=== PATIENT | female | born 1955 | race Caucasian/White ===

== ENCOUNTER 2017-10-15 08:54 | Observation (INO) | payer OTHER ==
[2017-10-15 09:40] LABS: #Eosinphils 0.1 thou/uL (0.0-0.7); #Lymphocytes 2.6 thou/uL (1.20-3.40); #Monocytes 0.6 thou/uL (0.11-0.59); #Neutrophils 3.1 thou/uL (1.40-6.50); %Basophils 0.5 % (0.0-1.0); %Eosinophils 1.1 % (0.0-10.0); %Lymphocytes 40.7 % (21.0-51.0); %Monocytes 8.8 % (0.0-10.0); %Neutrophils 48.8 % (42.0-75.0); Hemoglobin 14.1 g/dL (12.0-16.0); Mean Corpuscular HGB CONC 34.4 g/dL (32.0-36.0); Mean Corpuscular Hemoglobin 32.8 pg (27.0-31.0); Mean Corpuscular Volume 95.4 fl (81.0-99.0); Mean Platelet Volume 8.1 fL (7.4-10.4); Platelet Count 246 thou/uL (130-400); RBC Distribution Width 11.8 % (11.5-14.5); Red Blood Cell (RBC) Count 4.29 mill/uL (4.20-5.40); White Blood Cell (WBC) Count 6.4 thou/uL (4.8-10.8)
--- NOTE | 2017-10-15 10:01 | RAD ---
AP VIEW CHEST: Date: 10/15/17 INDICATION: Irregular heart rate and diaphoresis with chest pain. COMPARISON: None. FINDINGS: Lungs are clear. Cardiomediastinal silhouette is normal. No acute osseous abnormality is evident. IMPRESSION: No acute cardiopulmonary abnormality. POS: [facility]
[2017-10-15 10:03] LABS: ALT (SGPT) 11 U/L (8-55); AST (SGOT) 13 U/L (5-34); Albumin 4.5 g/dL (3.4-4.8); Alkaline Phosphatase 74 U/L (40-150); Anion Gap 9 mmol/L (10-20); BUN (Urea Nitrogen) 13 mg/dL (9.8-20.1); Bilirubin, Total 0.4 mg/dL (0.2-1.2); CK (CPK) 41 U/L (29-168); Calc. Creatinine Clearance 0 mL/min (70-130); Calcium 9.8 mg/dL (7.8-10.44); Carbon Dioxide 28 mmol/L (23-31); Chloride 102 mmol/L (98-107); Estimated GFR-MDRD Greater than 90; Globulin 2.9 g/dL (2.4-3.5); Glucose 91 mg/dL (80-115); Lipase 13 U/L (8-78); Potassium 3.9 mmol/L (3.5-5.1); Protein, Total 7.4 g/dL (6.0-8.3); Sodium 135 mmol/L (136-145)
[2017-10-15 10:13] LABS: CKMB 0.9 ng/mL (0-6.6); Troponin I Less than 0.010 ng/mL (< 0.028)
[2017-10-15] MEDS ORDERED: hydrALAZINE 20 MG/ML VIAL SLOW IVP PRN (11:20)
[2017-10-15] MEDS ORDERED: Zolpidem Tartrate 5 MG TAB PO PRN (11:20)
[2017-10-15] MEDS ORDERED: Ondansetron HCl/PF 4 MG/2 ML Vial IVP PRN (11:20)
[2017-10-15] MEDS ORDERED: Eucerin (Mineral Oil/Petrolatum,White) 30 gm Jar TOP PRN (11:20)
[2017-10-15] MEDS ORDERED: Nitroglycerin 0.4 MG TAB (25 Tab Bottle) SL PRN (11:20)
[2017-10-15] MEDS ORDERED: Artificial Tears 18 DROP/0.9 ML EA EYE PRN (11:20)
[2017-10-15] MEDS ORDERED: Loperamide HCl 2 MG CAP PO PRN (11:20)
[2017-10-15] MEDS ORDERED: HYDROcodone/Acetaminophen 5/325 mg Tablet PO PRN (11:20)
[2017-10-15] MEDS ORDERED: Milk Of Magnesia 30 ML UDCUP PO PRN (11:20)
[2017-10-15] MEDS ORDERED: Loratadine 10 MG TAB PO PRN (11:20)
[2017-10-15] MEDS ORDERED: Diabetic Tussin 200 MG/10 ML UDCUP PO PRN (11:20)
[2017-10-15] MEDS ORDERED: Chloraseptic Spray 180 ml Bottle PO PRN (11:20)
[2017-10-15] MEDS ORDERED: Sodium Chloride 0.65% Nasal 44 ML BOT EA NARE PRN (11:20)
[2017-10-15] MEDS ORDERED: Ondansetron ODT 4 MG TAB PO PRN (11:20)
[2017-10-15] MEDS ORDERED: Senokot 8.6 MG TAB PO PRN (11:20)
[2017-10-15] MEDS ORDERED: Mag-Al 1200 mg/1200 mg/30 ML UDCUP PO PRN (11:20)
--- NOTE | 2017-10-15 11:23 | PDOC.PN ---
- Subjective Encounter Start Date: 10/15/17 Encounter Start Time: 11:22 -: old records requested/rev see H & P - Objective Resuscitation Status: Resuscitation Status FULL:Full Resuscitation MAR Reviewed: Yes Result Diagrams: 10/15/17 09:30 10/15/17 09:30 Radiology Reviewed by me: Yes EKG Reviewed by me: Yes Phys Exam - Physical Examination Constitutional: NAD HEENT: PERRLA, moist MMs, sclera anicteric Neck: no JVD, supple Respiratory: no wheezing, no rales, no rhonchi Cardiovascular: RRR, no significant murmur, no rub Gastrointestinal: soft, non-tender, no distention, positive bowel sounds Musculoskeletal: no edema, pulses present Neurological: non-focal, normal sensation, moves all 4 limbs Lymphatic: no nodes Psychiatric: normal affect, A&O x 3 Skin: no rash, normal turgor Dx/Plan (1) Chest pain Code(s): R07.9 - CHEST PAIN, UNSPECIFIED Status: Acute (2) Palpitation Code(s): R00.2 - PALPITATIONS Status: Acute (3) Hypothyroidism Code(s): E03.9 - HYPOTHYROIDISM, UNSPECIFIED Status: Chronic (4) Osteoarthritis Code(s): M19.90 - UNSPECIFIED OSTEOARTHRITIS, UNSPECIFIED SITE Status: Chronic - Plan cont current plan of care, plan discussed w/ family * stress test * follow my H & P. Review of Systems - Review of Systems ENT: negative: Ear Pain, Ear Discharge, Nose Pain, Nose Discharge, Nose Congestion, Mouth Pain, Mouth Swelling, Throat Pain, Throat Swelling, Other Respiratory: negative: Cough, Dry, Shortness of Breath, Hemoptysis, SOB with Excertion, Pleuritic Pain, Sputum, Wheezing Cardiovascular: negative: chest pain, palpitations, orthopnea, paroxysmal nocturnal dyspnea, edema, light headedness, other Gastrointestinal: negative: Nausea, Vomiting, Abdominal Pain, Diarrhea, Constipation, Melena, Hematochezia, Other Genitourinary: negative: Dysuria, Frequency, Incontinence, Hematuria, Retention , Other Musculoskeletal: negative: Neck Pain, Shoulder Pain, Arm Pain, Back Pain, Hand Pain, Leg Pain, Foot Pain, Other Skin: negative: Rash, Lesions, Dylon, Bruising, Other - Medications/Allergies Allergies/Adverse Reactions: Allergies Allergy/AdvReac Type Severity Reaction Status Date / Time No Known Allergies Allergy Unverified 10/15/17 11:22 Medications: Current Medications Acetaminophen (Tylenol) 650 mg PO Q4H PRN PRN Reason: Headache/Fever or Pain Hydrocodone Bitart/Acetaminophen ([place] 5/325) 1 tab PO Q4H PRN PRN Reason: Moderate Pain (4-6) Al Hydroxide/Mg Hydroxide (Maalox) 30 ml PO Q6H PRN PRN Reason: Heartburn or Indigestion Artificial Tears (Tears Naturale) 0 drop EA EYE PRN PRN PRN Reason: Dry Eyes Aspirin (Aspirin) 325 mg PO DAILY TENZIN Famotidine (Pepcid) 20 mg PO BID TEZNIN Guaifenesin (Robitussin Sf) 200 mg PO Q4H PRN PRN Reason: Cough Hydralazine HCl (Apresoline) 10 mg SLOW IVP Q4H PRN PRN Reason: Systolic BP > 180 Loperamide HCl (Imodium) 2 mg PO PRN PRN PRN Reason: Diarrhea/Loose Stools Loratadine (Claritin) 10 mg PO DAILYPRN PRN PRN Reason: Sinus Symptoms Magnesium Hydroxide (Milk Of Magnesium) 30 ml PO DAILYPRN PRN PRN Reason: Constipation Mineral Oil/White Petrolatum (Eucerin Cream) 0 gm TOP BIDPRN PRN PRN Reason: Dry Skin Nitroglycerin (Nitrostat) 0.4 mg SL Q5MIN PRN PRN Reason: Chest Pain Ondansetron HCl (Zofran Odt) 4 mg PO Q6H PRN PRN Reason: Nausea/Vomiting Ondansetron HCl (Zofran) 4 mg IVP Q6H PRN PRN Reason: Nausea/Vomiting Phenol (Chloraseptic Anderson 180 Ml Bot) 0 ml PO PRN PRN PRN Reason: Sore Throat Senna (Senokot) 2 tab PO HSPRN PRN PRN Reason: Constipation Sodium Chloride (Tripp Nasal Anderson 0.65%) 0 ml EA NARE QIDPRN PRN PRN Reason: Nasal Congestion Zolpidem Tartrate (Ambien) 5 mg PO HSPRN PRN PRN Reason: Insomnia
[2017-10-15 11:42] VITALS: BMI 24.3
[2017-10-15 13:18] LABS: Troponin I Less than 0.010 ng/mL (< 0.028)
[2017-10-15 16:22] LABS: Troponin I Less than 0.010 ng/mL (< 0.028)
[2017-10-15] MEDS: Famotidine 20 MG TAB PO SCH (21:08)
--- NOTE | 2017-10-15 22:31 | HP ---
PRIMARY CARE PHYSICIAN: [facility] call admission. REASON FOR ADMISSION: Chest pain and palpitations. HISTORY OF PRESENT ILLNESS: A 61-year-old female who has underlying history of hypothyroidism, who c aki to emergency room for evaluation of chest pain and palpitations. Patient reports that for last o ne week, she was experiencing palpitations. She was feeling skipped beat. She was feeling irregular heart rate. Patient was feeling intermittently chest discomfort. Her chest discomfort was predomin antly in substernal region. One time, it was also radiated to neck. Otherwise, she denies any radia tion to arm. She denies any associated diaphoresis, but she felt a couple of times dizziness. She d enies any associated nausea, vomiting. She denies any syncope. She denies any orthopnea, PND, or le g swelling. There is no specific precipitating factor. Patient drinks only regular amount of coffee . She is taking thyroid medications. She does not have any hyperthyroid symptoms. As this patient was experiencing similar symptoms for about a week that is why she saw Dr. Carranza' s office and at that time, everything was normal and she was advised to get outpatient stress test. Patient did not have any outpatient stress test yet, but this morning when she was getting ready, at that time, patient again experienced palpitation and chest pain and that is why patient decided to go to emergency room for evaluation. In the emergency room, case monitor was showing PVCs and PACs, otherwise rhythm was normal. Lori vargas subsequently had blood test, which showed normal cardiac enzymes. Patient was admitted to telem etry floor for rule out acute coronary syndrome. Patient denies any UTI symptoms. She denies any fever or chills. She denies any constipation, diarr hea, melena, or hematochezia. She denies any abdominal pain. She denies any headache, focal motor s ymptoms, or sensory symptoms. REVIEW OF SYSTEMS: Please see my HPI for pertinent positive and negative. All other review of syste ms reviewed and negative except as mentioned in the HPI: Constitutional: Weight loss or gain, abil ity to conduct usual activities. Skin: Rash, itching. Eyes: Double vision, pain. ENT/Mouth: Nos e bleeding, neck stiffness, pain, tenderness. Cardiovascular: Palpitations, dyspnea on exertion, or thopnea. Respiratory: Shortness of breath, wheezing, cough, hemoptysis, fever, or night sweats. Ga strointestinal: Poor appetite, abdominal pain, heartburn, nausea, vomiting, constipation, or diarrhe a. Genitourinary: Urgency, frequency, dysuria, nocturia. Musculoskeletal: Pain, swelling. Neurol ogic/Psychiatric: Anxiety, depression. Allergy/Immunologic: Skin rash, bleeding tendency. PAST MEDICAL HISTORY: Hypothyroidism, osteoarthritis. PAST SURGICAL HISTORY: Breast augmentation, hysterectomy. PAST PSYCHIATRIC HISTORY: Reviewed and negative. 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 She dr inks alcohol socially. She denies any smoking. She denies any other illicit drug abuse. She is mar ried. FAMILY HISTORY: Positive for coronary artery disease to her parents. No family history of sudden ca rdiac . Atrial fibrillation was also diagnosed to her mother. EMERGENCY ROOM COURSE: Reviewed. ALLERGIES: No known drug allergies. CURRENT HOME MEDICATIONS: Levothyroxine 88 mcg p.o. daily, Zanaflex 4 mg p.o. daily, estropipate 1.5 mg p.o. daily. PHYSICAL EXAMINATION: VITAL SIGNS: On arrival blood pressure 151/86, pulse 68, respiratory rate 10, temperature 97.9, satu ration 98% on room air, weight 64.4 kilograms. GENERAL: Patient is currently alert, oriented, no acute distress. HEAD: Normocephalic, atraumatic. EYES: Pupils round, reactive to light. Extraocular muscle intact. ENT: Oropharynx within normal limits. Moist mucous membranes. No oral lesion, no pharyngeal erythe ma, no exudate. NECK: Supple, no JVD, no thyromegaly, no carotid bruit, no jugular venous distention. LUNGS: Clear to auscultation without any rhonchi or rales. CARDIAC: S1, S2 regular without any murmur. ABDOMEN: Soft, bowel sounds present, nontender, nondistended. No organomegaly, no mass, no suprapub ic tenderness. BACK: Unremarkable, no CVA tenderness. EXTREMITIES: Upper extremity passive movement of all joints are normal. Lower extremities, no edema . Good peripheral pulsation. SKIN: No skin rash. HEMATOLOGICAL SYSTEM: No lymphadenopathy. PSYCHIATRIC: Normal affect. NEUROLOGIC: Nonfocal examination. Patient moves all 4 limbs. Plantar bilateral flexor. PSYCHIATRIC: Normal affect. LABORATORY DATA: Significant labs EKG showing normal sinus rhythm, premature atrial complexes. Ches t x-ray based on my review, no acute cardiopulmonary process. CBC: WBC 6.4, hemoglobin 14.1, platel et 246. BMP: Sodium 135, potassium 3.9, chloride 102, carbon dioxide 28, anion gap 9, BUN 13, creat inine 0.64, glucose 91, calcium 9.8. LFT: AST 13, ALT 11, alkaline phosphatase 74, albumin 4.5. Ca rdiac enzymes negative x3. Chest x-ray based on my review, no acute cardiopulmonary process. ASSESSMENT AND PLAN: 1. Chest pain and palpitation. Patient's chest pain and palpitation description is atypical, most l ikely related with premature ventricular contraction and premature atrial contraction. Patient will be observed on telemetry floor. She will need ischemic workup and that is why we will perform exerci se Cardiolite stress test tomorrow morning. 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 Patient's cardiac examination is normal. Upon discharge, we will consider prescribing beta-catalina therapy. We will check lipid profile for risk stratification. We will also check TSH. We will monitor on telemetry floor for any kind of arrhythm ias. 2. Hypothyroidism. Continue Synthroid 88 mcg p.o. daily. Check TSH tomorrow. 3. Osteoarthritis and chronic low back pain. Continue patient's home medications, Zanaflex and estr opipate as per home dosage. 4. Deep venous thrombosis prophylaxis not needed because we are expecting discharge in 24 hours. 5. Gastrointestinal prophylaxis, Pepcid 20 mg p.o. b.i.d. Code status: Patient is FULL CODE. Patient's is surrogate decision maker. Disposition plan based on clinical course. Based on stress test result likely within 24 hours. Plan of care discussed with the patient and her at bedside.
[2017-10-16] MEDS: Acetaminophen 325 MG TAB PO PRN ×2 (04:52→10:41)
[2017-10-16] MEDS ORDERED: Levothyroxine Sodium 88 MCG TAB PO SCH (06:00)
[2017-10-16 06:05] LABS: Cardiac Risk 2.9 (Less than 4.5)
[2017-10-16] MEDS ORDERED: Metoprolol Tartrate 5 MG/5 ML VIAL ONE (08:00)
[2017-10-16] MEDS ORDERED: Aspirin 325 MG TAB PO SCH (09:00)
[2017-10-16] MEDS: Famotidine 20 MG TAB PO SCH (10:09)
[2017-10-16] MEDS ORDERED: Metoprolol Tartrate 5 MG/5 ML VIAL IVP SCH (10:30)
[2017-10-16] MEDS ORDERED: Diltiazem 125 MG in Sodium Chloride 0.9% 100 ML IVPB SCH (10:30)
--- NOTE | 2017-10-16 11:59 | NM ---
CARDIAC SPECT: CLINICAL HISTORY: 61-year-old female with chest pain. TECHNIQUE: A myocardial perfusion scan was performed using the single isotope two day protocol with 33 mCi techn etium-99m sestamibi injected intravenously for both stress and rest images. Exercise stress was monit ored and interpreted by Dr. Aguilar. FINDINGS: Homogeneous tracer distribution is seen in the myocardial segments on stress and rest images without fixed or reversible defects. GATED SPECT LVEF: 57%. WALL MOTION EXAM: Normal. IMPRESSION: Normal myocardial perfusion scan. POS: [facility]
--- NOTE | 2017-10-16 12:11 | CON ---
DATE OF CONSULTATION: 10/16/2017 HISTORY OF PRESENT ILLNESS: Patient is a pleasant 61-year-old woman who presents for evaluation of palpitations and chest discomfort. The patient was seen several years ago with these symptoms. She underwent a Cardiolite stress test and wore a Holter monitor. Her evaluation was apparently unremarkable. She states she worked until recently for several years. The patient for the past few months was noted having palpitations. She states once or twice a month it will occur. She noticed her heart rate is very rapid. The patient also notes having substernal chest discomfort. She states this occurs when she feels her heart is racing. The patient today underwent a stress test and developed rapid palpitations and chest discomfort. PAST MEDICAL HISTORY: Thyroid disorder. PAST SURGICAL HISTORY: Appendectomy and breast surgery. MEDICATIONS ON ADMISSION: Synthroid 88 mcg daily, Zanaflex 4 mg daily, estropipate 1.5 mg daily. ALLERGIES: She has no known drug allergies. SOCIAL HISTORY: She is a nonsmoker. REVIEW OF SYSTEMS: Ten-point system otherwise unremarkable. No history of bruising or bleeding, bright red blood per rectum. PHYSICAL EXAMINATION: GENERAL APPEARANCE: This is a well-developed woman in no acute distress. VITAL SIGNS: Blood pressure was 134/76, heart rate 120 and irregular. NECK: Showed no jugular venous distention. LUNGS: Clear to auscultation. HEART: Irregular rate and rhythm, normal S1, S2, no murmurs. ABDOMEN: Nondistended. EXTREMITIES: Show no edema. SKIN: Warm and dry. NEUROLOGIC: Nonfocal. VASCULAR: Radial pulses are 2+. LABORATORY DATA AND IMAGING DATA: Sodium 135, potassium 3.9, chloride 102, bicarbonate 28, BUN 13, creatinine 0.64, glucose is 91. Her white blood cell count 6.4, hemoglobin 14.1, hematocrit 40.9, and platelets are 246. EKG revealed her to have atrial fibrillation with rapid ventricular response with rate of approximately 180 and up to 200, possible SVT . IMPRESSION: 1. New onset of atrial fibrillation. 2. Probable supraventricular tachycardia. 3. Thyroid disorder. This patient presents with irregular heart rhythms and chest discomfort. From a cardiac standpoint, she is a CHADS-VASc score of only 1. The patient was started on IV Cardizem. She received IV Lopressor during her stress test. There was significant ST depression with these rapid heart rates. We will await the results of her Cardiolite stress test. We will follow this patient with you through her hospitalization. KATY
[2017-10-16] MEDS ORDERED: Ketorolac Tromethamine 30 MG/ML VIAL IVP SCH (13:30)
[2017-10-16] MEDS ORDERED: Metoclopramide HCl 10 MG/2 ML VIAL IVP SCH (13:30)
[2017-10-16 15:28] VITALS: BP 123/77; TEMP 97.9
--- NOTE | 2017-10-16 20:06 | CON ---
DATE OF CONSULTATION: 10/16/2017 This is Aida Morrow, Nurse Practitioner, dictating Electrophysiology consult for Jin Bonilla M.D . REFERRING PHYSICIAN: Kenny Aguilar M.D. PRIMARY FAX MACHINE OPERATOR: Jey Carranza M.D. REASON FOR CONSULTATION: Atrial arrhythmias versus SVT. HISTORY OF PRESENT ILLNESS: Ms. Rojo is a very pleasant 61-year-old woman, who initially presented to the emergency room for further evaluation of palpitations and some mild chest tightness. She has never had chest tightness before; however, she has progressively been experiencing palpitations sinc e the beginning of this year. Her episodes will occur approximately every month to every other month and have some rapid heart rate that last for just a few minutes before spontaneously terminating. H owever, with this particular episode, she did develop some substernal chest discomfort, at which pogibran t decided to go to the emergency room. In the past, she has undergone evaluation for her palpitations and had a Cardiolite stress test and a lso wear monitor, which was unremarkable. She reports that with exercise exertion, she notices palpi tations more and occasionally heart racing and has for many years. Today, she underwent a stress gilmer t and while in phase 2 in the stress test, her heart rate spiked to between 170 and 200 beats per min xin. She was previously on a Cardizem drip. This has since resolved and currently she feels well. She has not had any heart racing, palpitations, chest pain or pressure, syncope or near syncope. She denies any stroke or stroke-like symptoms and denies any swelling of the extremities or progressive shortness of breath or dyspnea on exertion. REVIEW OF SYSTEMS: A 12-point review of systems was conducted and is negative except that listed abo ve in the HPI. PAST MEDICAL HISTORY: Positive for hypothyroidism, palpitations, and appendectomy. HOME MEDICATIONS: Synthroid 88 mcg daily, Zanaflex 4 mg daily, and estropipate 1.5 mg daily. ALLERGIES: No known drug allergies. SOCIAL HISTORY: . Negative for tobacco use. Negative for alcohol and illicit drug use. FAMILY HISTORY: Negative for sudden cardiac or early onset coronary artery disease, negative f or arrhythmias. PHYSICAL EXAMINATION: VITAL SIGNS: Temperature 97.9, pulse 78, blood pressure 131/70, respirations 12, oxygen saturation 9 6% on room air, blood pressure 123/77. GENERAL: This is a well-appearing, well-groomed and well-nourished female, in no acute distress. Sh e is alert and oriented. Her speech is clear and her affect is appropriate. HEENT: She is normocephalic, atraumatic. Her Sclerae are anicteric. TMs are intact. Her oral muco sa is moist and pink with adequate dentition. NECK: Supple without jugular venous distention. Thyroid is nonpalpable. There is no lymphadenopath y. CARDIOVASCULAR: Heart rate is currently regular with normal S1, S2 and no murmurs appreciated. EXTREMITIES: Warm and dry to touch without clubbing, cyanosis or edema. LUNGS: Clear to auscultation bilaterally without wheezes, crackles or rhonchi. ABDOMEN: Soft, nontender without palpable masses and hepatojugular reflex is negative. There are po sitive bowel sounds throughout. NEUROLOGIC: Grossly intact and exam is nonfocal. DATABASE: Recent hematology: WBC 6.4, hemoglobin 14.1, hematocrit 40.9, platelet count 246. Chemis try: Sodium 135, potassium 3.9, chloride 102, carbon dioxide 28, BUN is 13, creatinine 0.64. Serial troponins were negative. TSH is 1.48. Review of 12-lead EKGs and rhythm strips, all were personally reviewed including the tracings recorde d during her stress test. The patient is currently in normal sinus rhythm with rate controlled in th e 60-70 beat per minute range. While during her stress test, the patient did go into what appears to be atrial flutter. Cannot truly rule out SVT with a 12-lead EKG alone, rates from 170-200 beats per minute. IMPRESSION: 1. New onset of chest tightness with associated palpitations. 2. Newly found atrial fibrillation/atrial flutter with rapid ventricular response. Cannot rule out supraventricular tachycardia. 3. CHADS-VASc score of 1 for female gender. PLAN: At this time, would just recommend fairly conservative medical management for Ms. Rojo with beta-catalina therapy and will be initiating metoprolol. In the setting of paroxysmal atrial arrhythm ias, we will start her on aspirin 81 mg daily given her low CHADS-VASc score and thus low risk for [facility]. I recommend continuing to monitor as an outpatient for 1-2 weeks for recurrence of arrhythmias . Most of her episodes seem to be exercise-induced and titrating beta-blockers as tolerated and may provide adequate control of these extra beats and prevent atrial fibrillation and atrial flutter epis odes. No plan for invasive therapies at this time. She is still pending the results from her stress test. Also, I recommend continued monitoring of her TSH, which is currently within range. Thank you for allowing us to participate in the care of this patient.
[2017-10-16] MEDS ORDERED: Metoprolol Tartrate 25 MG TAB PO SCH (21:00)
[2017-10-16] MEDS ORDERED: tiZANidine HCl 4 MG TAB PO SCH (21:00)
--- NOTE | 2017-10-17 03:10 | DIS ---
DATE OF ADMISSION: 10/15/2017 DATE OF DISCHARGE: 10/16/2017 DISCHARGE DIAGNOSES: 1. New onset of atrial fibrillation. 2. Palpitations. 3. Hypothyroidism. HOSPITAL COURSE: The patient is a very pleasant 61-year-old female who initially presented to the [facility] with palpitations and chest pain. The patient underwent troponins checked which were negative x3. Patient's TSH was normal. The patient underwent a stress test; however, during the stress test , she went into atrial fibrillation, RVR. At that time, the patient was given 5 mg of IV Lopressor a nd was started on a Cardizem drip. The patient was seen by soap chipper and by Cardiology at that time. The patient was discharged home with 25 mg of metoprolol twice a day, and aspirin given h er CHADS-VASc score of 1. Patient will follow up with Cardiology in 1-2 weeks. Her EF was 57% and s he had no wall motion abnormalities in the stress test that was noted. DISCHARGE MEDICATIONS: As following aspirin 81 mg daily, metoprolol 25 mg p.o. b.i.d., levothyroxine 88 mcg p.o. daily, and tizanidine 4 mg p.o. at bedtime. PHYSICAL EXAMINATION: VITAL SIGNS: Temperature ____, 61, 16, 134/76. GENERAL: She is awake, alert, oriented x3, does not appear in distress. HEART: S1, S2 present. No murmurs, rubs, or gallops. ABDOMEN: Soft, nontender. Bowel sounds are present x2. LUNGS: Clear to auscultation, rhonchi, or wheezes noted. EXTREMITIES: No edema. DISCHARGE INSTRUCTIONS: Patient will be discharged home. Follow up with PCP and Cardiology.
== END 2017-10-16 17:03 | disposition home or self-care (01) ==
LOC: ERS 08:54 → 2SW 11:11
PROVIDERS: ADMIT Internal Medicine; ATTEND Internal Medicine
DX: R07.89 Other chest pain (principal); R00.2 Palpitations; I48.0 Paroxysmal atrial fibrillation; E03.9 Hypothyroidism, unspecified; M19.90 Unspecified osteoarthritis, unspecified site; G89.29 Other chronic pain; M54.5 Low back pain; Z79.899 Other long term (current) drug therapy; Z90.49 Acquired absence of other specified parts of digestive tract; Z82.49 Family history of ischemic heart disease and other diseases of the circulatory system
CPT/HCPCS: 36415; 71045; 78452; 80053; 80061; 82553; 83690; 84443; 84484; 85025; 93005; 93017; 94760; 96374; 96375; 96376; A9500; G0378; J1885; J2405; J2765; J7050

== ENCOUNTER 2018-05-20 14:17 | Observation (INO) | payer OTHER ==
[~2018-05-20 14:17] MED LIST: Iopamidol 370 76% 100 ML VIAL ONE
[2018-05-20 14:55] LABS: #Eosinphils 0.1 thou/uL (0.0-0.7); #Monocytes 0.6 thou/uL (0.11-0.59); #Neutrophils 3.5 thou/uL (1.40-6.50); %Basophils 0.3 % (0.0-1.0); %Eosinophils 2.2 % (0.0-10.0); %Lymphocytes 32.6 % (21.0-51.0); %Monocytes 9.1 % (0.0-10.0); %Neutrophils 55.8 % (42.0-75.0); Hemoglobin 12.8 g/dL (12.0-16.0); Mean Corpuscular HGB CONC 34.6 g/dL (32.0-36.0); Mean Corpuscular Hemoglobin 33.9 pg (27.0-31.0); Mean Corpuscular Volume 97.8 fL (78.0-98.0); Mean Platelet Volume 8.4 fL (7.4-10.4); Platelet Count 241 thou/uL (130-400); Red Blood Cell (RBC) Count 3.78 mill/uL (4.20-5.40); White Blood Cell (WBC) Count 6.2 thou/uL (4.8-10.8)
[2018-05-20 15:04] LABS: INR-International Normal Ratio 0.9
[2018-05-20 15:18] LABS: ALT (SGPT) 11 U/L (8-55); AST (SGOT) 16 U/L (5-34); Albumin 4.1 g/dL (3.4-4.8); Alkaline Phosphatase 78 U/L (40-150); Anion Gap 10 mmol/L (10-20); BUN (Urea Nitrogen) 13 mg/dL (9.8-20.1); Bilirubin, Total 0.3 mg/dL (0.2-1.2); CK (CPK) 63 U/L (29-168); CKMB 0.9 ng/mL (0-6.6); Calc. Creatinine Clearance 0 mL/min (70-130); Calcium 9.3 mg/dL (7.8-10.44); Carbon Dioxide 24 mmol/L (23-31); Chloride 103 mmol/L (98-107); Estimated GFR-MDRD 86; Glucose 106 mg/dL (80-115); Protein, Total 7.1 g/dL (6.0-8.3); Sodium 133 mmol/L (136-145); Troponin I Less than 0.010 ng/mL (< 0.028)
--- NOTE | 2018-05-20 15:37 | CT ---
CT HEAD NONCONTRAST: Date: 05/20/18 INDICATINO: Stroke alert, new onset left arm numbness. FINDINGS: There is no intracranial hemorrhage, mass effect, or midline shift. Mild white matter hypoattenuation indicates chronic ischemic disease. Ventricular system is appropriate in volume. IMPRESSION: 1. No acute intracranial hemorrhage or mass effect. 2. Mild chronic ischemic disease. Telephone call findings placed to Tyrone Dozier, ER physician, at 1511 hours on 05/20/18. CODE CR. POS: [facility]
--- NOTE | 2018-05-20 17:16 | CT ---
CT ANGIOGRAM HEAD WITH CONTRAST CT ANGIOGRAM NECK WITH CONTRAST: Date: 05/20/18 HISTORY: 62-year-old female with acute stroke. Sudden onset dysarthria, facial droop, and left upper extremity numbness. Dr. Rowland gave this acute stroke protocol report by telephone to Dr. Dozier at 1535 hours on 05/20/18. TECHNIQUE: IV injection of 100 mL [id number]. Arterial bolus chasing technique scan performed from level of pulmonic trunk to vertex of head. Coronal and sagittal 3D MIP reconstructions. NASCET criteria used. FINDINGS: Minimal calcified plaque at origin of right internal carotid artery at carotid bulb. No calcified channing que in contralateral left carotid bulb. Minimal atherosclerotic calcification at bilateral carotid si phons. No evidence of significant stenosis in brachiocephalic, bilateral subclavian, bilateral common caroti d, bilateral internal carotid, and bilateral vertebral, arteries, in the neck. No evidence of high gr torrie focal short segment acquired stenosis involving intracranial vertebral, bilateral PICA, right AIC A, bilateral superior cerebellar, bilateral posterior cerebral, bilateral carotid siphons, bilateral middle cerebral, or bilateral anterior cerebral, arteries, or their proximal branches. No occlusion i dentified. No evidence of aneurysm. IMPRESSION: 1) Minimal atherosclerosis at proximal right internal carotid artery. 2) Otherwise Negative. POS: [facility]
[2018-05-20] MEDS ORDERED: tiZANidine HCl 4 MG TAB PO PRN (17:46)
[2018-05-20] MEDS ORDERED: Meclizine HCl 25 MG TAB PO PRN (17:46)
[2018-05-20] MEDS ORDERED: Acetaminophen 325 MG TAB PO PRN (17:48)
[2018-05-20 17:49] VITALS: BMI 24.4
[2018-05-20] MEDS: Metoprolol Tartrate 25 MG TAB PO SCH (21:31)
[2018-05-20] MEDS: Flecainide 50 MG TAB PO SCH (21:31)
[2018-05-20] MEDS: Famotidine 20 MG TAB PO SCH (21:31)
--- NOTE | 2018-05-21 01:43 | HP ---
PRIMARY CARE PHYSICIAN: Dr. Lott. CHIEF COMPLAINT: Transient left-sided facial droop, aphasia, and left-sided arm weakness. HISTORY OF PRESENT ILLNESS: Ms. Rojo is a 62-year-old female who reports to the ER after she had an episode of left-sided facial droop, left-sided arm weakness, numbness, and some difficulty forming words. 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 Reports that the symptoms lasted between 5 and 10 minutes and then resolved on their own. The patient has a family history of stroke. The patient was concerned and presented to the emergency room. The patient has a history of atrial fibrillation, was seen by Dr. Bonilla about 6 weeks ago, was started on flecainide and takes an aspirin 81 mg a day. The patient was admitted to the stroke unit for further management. PAST MEDICAL HISTORY: Include hypothyroidism, atrial fibrillation, and arthritis. PAST SURGICAL HISTORY: Breast augmentation, breast biopsy, and partial hysterectomy. PSYCHIATRIC HISTORY: Denies any psych history. SOCIAL HISTORY: The patient drinks every day, less than 5 drinks per day. Denies any drug use. Denies any smoking history. ALLERGIES: NONE. CURRENT MEDICATIONS: Include; 1. Flecainide 50 mg p.o. b.i.d. 2. Metoprolol 50 mg p.o. b.i.d. 3. Aspirin 81 mg once a day. 4. Levothyroxine 88 mcg p.o. daily. 5. Estropipate 1.5 mg p.o. daily. 6. Zanaflex 4 mg p.o. q.6h as needed. 7. 5-FU cream 5% topical to face. REVIEW OF SYSTEMS: CONSTITUTIONAL: The patient denies chills, fatigue, fever, or lethargy. Denies any current weakness. EYES: Denies any eye pain, photophobia, or vision changes. ENT: Denies any drooling. Denies any current dysphagia. Denies any sinus pain. CARDIOVASCULAR: Denies any chest pain. Does report intermittent palpitations since September. RESPIRATORY: Denies cough, shortness of breath, or stridor. Denies wheezing. GASTROINTESTINAL: Denies any abdominal pain, appetite changes, diarrhea, nausea, or vomiting. GENITOURINARY: Female. Denies dysuria. Denies increased frequency. MUSCULOSKELETAL: Denies any back pain. Denies any neck pain. SKIN: Denies any skin changes. Denies rash. NEUROLOGIC: Denies confusion. Does report intermittent dizziness. Reports a small headache after the motor and sensory changes today, reports speech changes earlier today, reports left arm numbness, reports a left-sided facial droop which are currently resolved. LABORATORY DATA AND IMAGING STUDIES: The patient had a head CT, which showed chronic ischemic white matter changes, otherwise no acute process. EKG in the ER showed a normal sinus rhythm. Beats per minutes are 62, normal conduction. ST-segments are normal. T-waves are normal. [place] is normal. CK-MB was 0.9. Troponin-I undetectable. CK 63. Sodium was 133, potassium 4.0, chloride 103, carbon dioxide 24, gap is 10, BUN is 13, creatinine is 0.69. GFR is 86, glucose is 106, calcium 9.3. Liver enzymes are unremarkable. PTT is 30. INR is 0.9. Prothrombin time is 12. White blood cell count 6.2, hemoglobin 12.8, hematocrit 37, platelet count is 241. ASSESSMENT AND PLAN: 1. Transient ischemic attack. We will obtain an MRI of the brain. CTA of the head and neck were ordered. We will consult Neurology. The patient was given a 325 mg of aspirin in the emergency room. 2. Hypothyroidism. We will continue home medications. 3. History of atrial fibrillation. We will continue the flecainide. 4. Deep venous thrombosis and gastrointestinal prophylaxis will be started. 5. Hospital course will be dependent on clinical findings. Job ID: [id number]
[2018-05-21] MEDS ORDERED: Levothyroxine Sodium 88 MCG TAB PO SCH (06:00)
[2018-05-21 06:23] LABS: #Eosinphils 0.2 thou/uL (0.0-0.7); #Lymphocytes 2.3 thou/uL (1.20-3.40); #Monocytes 0.7 thou/uL (0.11-0.59); #Neutrophils 2.3 thou/uL (1.40-6.50); %Basophils 0.5 % (0.0-1.0); %Eosinophils 2.8 % (0.0-10.0); %Lymphocytes 42.1 % (21.0-51.0); %Monocytes 12.2 % (0.0-10.0); %Neutrophils 42.6 % (42.0-75.0); Hemoglobin 12.3 g/dL (12.0-16.0); Mean Corpuscular HGB CONC 34.8 g/dL (32.0-36.0); Mean Corpuscular Hemoglobin 34.3 pg (27.0-31.0); Mean Corpuscular Volume 98.6 fL (78.0-98.0); Mean Platelet Volume 8.6 fL (7.4-10.4); Platelet Count 230 thou/uL (130-400); RBC Distribution Width 12.2 % (11.5-14.5); Red Blood Cell (RBC) Count 3.59 mill/uL (4.20-5.40); White Blood Cell (WBC) Count 5.5 thou/uL (4.8-10.8)
[2018-05-21 06:35] LABS: ALT (SGPT) 10 U/L (8-55); AST (SGOT) 13 U/L (5-34); Albumin 3.7 g/dL (3.4-4.8); Alkaline Phosphatase 63 U/L (40-150); Anion Gap 9 mmol/L (10-20); BUN (Urea Nitrogen) 11 mg/dL (9.8-20.1); Bilirubin, Total 0.4 mg/dL (0.2-1.2); Calc. Creatinine Clearance 87 mL/min (70-130); Calcium 8.8 mg/dL (7.8-10.44); Carbon Dioxide 24 mmol/L (23-31); Cardiac Risk 3.2 (Less than 4.5); Chloride 106 mmol/L (98-107); Cholesterol 194 mg/dl (< 200 Desired); Estimated GFR-MDRD 89; Globulin 2.6 g/dL (2.4-3.5); Glucose 94 mg/dL (80-115); HDL Cholesterol 61 mg/dL (>60 Neg Risk); LDL Cholesterol, Calculated 115 mg/dL; Potassium 3.9 mmol/L (3.5-5.1); Protein, Total 6.3 g/dL (6.0-8.3); Sodium 135 mmol/L (136-145); Triglycerides 88 mg/dL (Less than 150)
[2018-05-21 06:54] LABS: Free T4 (Free Thyroxine) 1.11 ng/dL (0.70-1.48); Thyroid Stimulating Hormone 1.368 uIU/mL (0.35-4.94)
[2018-05-21] MEDS: Famotidine 20 MG TAB PO SCH (08:50)
[2018-05-21] MEDS: Metoprolol Tartrate 25 MG TAB PO SCH (08:50)
[2018-05-21] MEDS: Flecainide 50 MG TAB PO SCH (08:50)
[2018-05-21] MEDS ORDERED: Ergocalciferol 1.25 MG(50,000 UNITS) CAP PO SCH (09:00)
[2018-05-21] MEDS ORDERED: Enoxaparin Sodium 30 MG/0.3 ML SYRINGE SC SCH (09:00)
[2018-05-21] MEDS ORDERED: Aspirin 325 MG TAB PO SCH (09:00)
--- NOTE | 2018-05-21 13:34 | MRI ---
NONCONTRAST ENHANCED MRI BRAIN: HISTORY: TIAs. Left arm numbness. TECHNIQUE: Multiplanar, multisequence, noncontrast enhanced MRI brain obtained. FINDINGS: Images demonstrate some deep white matter ischemic changes. No evidence of acute intracranial masses , hemorrhages, or strokes seen. No evidence of areas of diffusion restriction seen. Noted is an area of hyperintensity seen on the T2 weighted sequences, at the anterior aspect of the s uperficial lobe of the right parotid gland. The lesion measures approximately 9 x 13 mm. Further wo rkup using contrast enhanced CT soft tissue neck, to further evaluate the right parotid gland, may be of use. IMPRESSION: 1. No evidence of acute intracranial strokes or masses. 2. Right parotid area of signal abnormality. Differential diagnosis includes cyst versus cystic mas s. Correlate with contrast enhanced CT of the soft tissue neck. POS: YUE
[2018-05-21 16:02] VITALS: BP 124/73; TEMP 98.1
--- NOTE | 2018-05-22 00:21 | CON ---
DATE OF CONSULTATION: 05/21/2018 CONSULTING PHYSICIAN: Hospitalist Service. IMPRESSION: Transient ischemic attack versus complex migraine. PLAN: 1. Add Plavix 75 mg per day. 2. Continue aspirin. 3. Office followup. HISTORY OF PRESENT ILLNESS: Ms. Rojo is a 62-year-old woman with past history of migraine headache. She has recently had a cardiac workup, and during the stress test, had a brief conversion to atrial fibrillation. She had a followup monitoring, which failed to reveal any evidence of recurrent atrial fibrillation. She has been on aspirin and medications for rate control. She has had some migraines with aura prior to this admission. She was working at her desk when she lost the central vision in her right eye, she developed a headache afterward. She has used Maxalt in the past. On this occasion, she was working, and she suddenly felt that the left arm was numb and a bit weak, she started slurring her speech. Co-workers report that she had some left facial droop. Her symptoms lasted less than a minute and then resolved. She got a headache about 15 minute later. She came into the hospital for evaluation. She had a CT of the brain and CTA, which were both clear. Her MRI of the brain was unremarkable other than a right parotid gland mass. Her lab work was all in normal range with a cardiac risk of 3.2. PAST MEDICAL HISTORY: As noted above. ALLERGIES: NONE REPORTED. SOCIAL HISTORY: No tobacco use. FAMILY HISTORY: Noncontributory. REVIEW OF SYSTEMS: Otherwise negative for any other transient neurologic events. PHYSICAL EXAMINATION: VITAL SIGNS: Have been stable. She is afebrile. HEENT: Pupils are equal and reactive. Conjunctivae are clear. Oropharynx is clear. NECK: Supple. EXTREMITIES: No cyanosis. NEUROLOGIC: She is alert and appropriate. Her speech is fluent and clear. There are no focal deficits present. SUMMARY: Given the somewhat inconclusive connection between the transient neurologic deficit and development of a headache, I would suggest adding Plavix. I will follow up with her, and we will probably discontinue this treatment in 6 months if she remains asymptomatic. Job ID: [id number]
--- NOTE | 2018-05-24 10:06 | DIS ---
DATE OF ADMISSION: 05/20/2018 DATE OF DISCHARGE: 05/21/2018 PRIMARY CARE PHYSICIAN: Dr. Lott. DIRECT MARKETING SPECIALIST: Dr. Valle. PROCEDURES: 1. The patient had a CTA of the neck and brain with contrast, findings; minimal calcified plaque at origin of right internal carotid artery, the carotid bulb, no calcified plaque in contralateral left carotid bulb. Minimal atherosclerotic calcification of bilateral carotid siphons. No evidence of significant stenosis , bilateral subclavian, bilateral common carotid, bilateral internal carotid or bilateral vertebrae, arteries or neck. No evidence of high-grade focal short segment acquired stenosis involving intracranial vertebral, bilateral PICA, right AICA, bilateral supracerebellar, bilateral posterior cerebral, bilateral carotid siphons, bilateral middle cerebral or bilateral anterior cerebral arteries or their proximal branches. No occlusion is identified. No evidence of aneurysm. 2. The patient had a brain CT that showed impression; no acute intracranial hemorrhage or mass effect, mild chronic ischemic disease. 3. The patient also had an MRI of the brain, which showed no evidence of acute intracranial stroke or mass. Right parotid area of signal abnormality. Differential diagnosis includes cyst versus cystic mass, correlate with contrast-enhanced CT of soft tissue neck. 4. The patient also had an echocardiogram with ejection fraction of 55% to 60% with some mild atrial regurgitation, mild aortic regurgitation, and mild tricuspid regurgitation. DISCHARGE DIAGNOSES: 1. Transient ischemic attack. 2. Atrial fibrillation, transient, and treated with flecainide. 3. Hypertension, well controlled. REVIEW OF SYSTEMS: The patient was examined on day of discharge. Denied any headache. Denied any chest pain. Denied any focal or sensory deficits. Denied any motor deficits. All other systems were reviewed and are negative. PHYSICAL EXAMINATION: VITAL SIGNS: Temperature is 97.6, pulse is 59, respiratory rate 18, pulse ox is 97% on room air, and blood pressure 141/74. CONSTITUTIONAL: The patient denies chills, fatigue, fever, or lethargy. Denies any current weakness. HEAD: Normocephalic and atraumatic. ENT: Mucous membranes are moist. Mouth exam is normal. NECK: Full range of motion. Trachea is midline. CHEST: Breath sounds are clear, in no respiratory distress. HEART: S1 and S2. No extra sounds are heard. ABDOMEN: Soft and nontender. Bowel sounds are heard. EXTREMITIES: Upper extremities; normal inspection, normal range of motion. Pulses are equal bilaterally. Lower extremities; normal inspection, normal range of motion, normal strength. No pedal edema is noted. Pulses are equal bilaterally. NEUROLOGIC: Cranial nerves 2 through 10 are intact. No focal or sensory deficits. SKIN: Warm and dry and normal in color. HOSPITAL COURSE: The patient was admitted on 05/20 through the emergency room after she reported for evaluation after having an episode of left-sided facial droop, left-sided arm weakness, numbness, and some difficulty forming some words, she reports this lasted about 10 minutes, she was at work, does have a history of atrial fibrillation, which is controlled with flecainide. Her initial head CT was negative. Based on presentation and risk factors, she was admitted to stroke observation for further workup. Her CTA of the head and neck was negative for any acute process. Her MRI of the brain showed some chronic white matter changes, but otherwise no acute findings. She was seen by Dr. Valle for neurology, who recommended adding Plavix and aspirin and asked to follow her in the office. The patient's vital signs remained stable. The patient had no further symptoms. The patient was eager to return home. Case discussed with Dr. Huff, who agreed with the plan. The patient was agreeable to starting the Plavix. MEDICATIONS: Current medications will be restarted: 1. Flecainide 50 mg p.o. b.i.d. 2. Metoprolol 50 mg p.o. b.i.d. 3. We will increase her aspirin from 81 to 325 mg once a day. 4. Levothyroxine 88 mcg p.o. daily. 5. Estropipate 1.5 mg p.o. daily. 6. Zanaflex 4 mg p.o. every 6 hours as needed. 7. 5-FU cream 5% topical to face as instructed. 8. We will add Plavix 75 mg p.o. daily. 9. We will add Lipitor 40 mg p.o. daily. ALLERGIES: THE PATIENT HAS NO KNOWN ALLERGIES. DISPOSITION: The patient was discharged to home. CONDITION: The patient's condition is stable. REFERRAL: The patient should follow up with Dr. Lott and also Dr. Valle on his next available appointment. Job ID: [id number]
--- NOTE | 2018-05-25 14:07 | EKG ---
Test Reason : Blood Pressure : / mmHG Vent. Rate : 062 BPM Atrial Rate : 062 BPM P-R Int : 182 ms QRS Dur : 094 ms QT Int : 422 ms P-R-T Axes : 071 060 066 degrees QTc Int : 428 ms Normal sinus rhythm Normal ECG Confirmed by WILDER INIGUEZ, MYA Williamson ([id number]), fashion editor LANDY FORTE ([id number]) on 05/25/2018 2:07:21 PM Referred By: Confirmed By:YMA HDZ MD
== END 2018-05-21 17:33 | disposition home or self-care (01) ==
LOC: ERS 14:17 → 2SE 15:32
PROVIDERS: ADMIT Internal Medicine; ATTEND Internal Medicine
DX: G45.9 Transient cerebral ischemic attack, unspecified (principal); E03.9 Hypothyroidism, unspecified; I48.91 Unspecified atrial fibrillation; M19.90 Unspecified osteoarthritis, unspecified site; G43.909 Migraine, unspecified, not intractable, without status migrainosus; I10 Essential (primary) hypertension; Z79.82 Long term (current) use of aspirin; Z79.899 Other long term (current) drug therapy
CPT/HCPCS: 36415; 70450; 70496; 70498; 70551; 80053; 80061; 82550; 82553; 84439; 84443; 84481; 84484; 85025; 85610; 85730; 93005; 93306; 96372; G0378; J1650

== ENCOUNTER 2018-06-03 09:07 | Observation (INO) | payer OTHER ==
[2018-06-03 09:48] LABS: #Basophils 0.1 thou/uL (0.0-0.2); #Eosinphils 0.1 thou/uL (0.0-0.7); #Lymphocytes 2.2 thou/uL (1.20-3.40); #Monocytes 0.5 thou/uL (0.11-0.59); #Neutrophils 3.2 thou/uL (1.40-6.50); %Eosinophils 1.9 % (0.0-10.0); %Lymphocytes 36.1 % (21.0-51.0); %Monocytes 8.9 % (0.0-10.0); %Neutrophils 52.1 % (42.0-75.0); Hemoglobin 12.5 g/dL (12.0-16.0); Mean Corpuscular HGB CONC 33.6 g/dL (32.0-36.0); Mean Corpuscular Hemoglobin 32.7 pg (27.0-31.0); Mean Corpuscular Volume 97.3 fL (78.0-98.0); Mean Platelet Volume 8.4 fL (7.4-10.4); Platelet Count 218 thou/uL (130-400); RBC Distribution Width 11.7 % (11.5-14.5); Red Blood Cell (RBC) Count 3.82 mill/uL (4.20-5.40); White Blood Cell (WBC) Count 6.1 thou/uL (4.8-10.8)
[2018-06-03 09:51] LABS: INR-International Normal Ratio 1.1; PTT 34.7 SEC (22.9-36.1); Prothrombin Time 14.5 SEC (12.0-14.7)
--- NOTE | 2018-06-03 10:03 | RAD ---
PORTABLE CHEST 1 VIEW: DATE: 06/03/2018. TIME: 9:30 a.m. HISTORY: Chest pain, hypotension, bradycardia. FINDINGS: Comparison is made with the exam of 10/15/2017. The heart size is normal. The aorta is tortuous. The lungs are expanded without focal areas of cons olidation, pneumothoraces, or pleural effusions. IMPRESSION: No radiographic evidence of acute cardiopulmonary process. POS: OFF
[2018-06-03 10:10] LABS: ALT (SGPT) 10 U/L (8-55); AST (SGOT) 12 U/L (5-34); Albumin 3.5 g/dL (3.4-4.8); Alkaline Phosphatase 69 U/L (40-150); Anion Gap 11 mmol/L (10-20); BUN (Urea Nitrogen) 12 mg/dL (9.8-20.1); Bilirubin, Total 0.4 mg/dL (0.2-1.2); CK (CPK) 26 U/L (29-168); Calc. Creatinine Clearance 0 mL/min (70-130); Calcium 8.3 mg/dL (7.8-10.44); Carbon Dioxide 21 mmol/L (23-31); Chloride 105 mmol/L (98-107); Estimated GFR-MDRD 82; Globulin 2.7 g/dL (2.4-3.5); Glucose 94 mg/dL (80-115); Potassium 3.7 mmol/L (3.5-5.1); Protein, Total 6.2 g/dL (6.0-8.3); Sodium 133 mmol/L (136-145)
[2018-06-03 11:32] LABS: Bilirubin Negative (Negative); Blood, Urine Negative (Negative); Clarity CLOUDY (Clear); Glucose, Urine (Dipstick) Negative (Negative); Leukocyte Trace (Negative); Nitrite Negative (Negative); Protein, Urine (Dipstick) Negative (Neg-Trace); Urobilinogen 0.2 mg/dL (0.2-1.0)
[2018-06-03 11:36] LABS: Bacteria/HPF None Seen HPF (None Seen); Hyaline Casts/LPF 0-3 HYALINE CAST LPF (0-3 Hyaline); Pathc Cast-AUWi Flag 0.14 (0-2.49)
[2018-06-03 12:00] LABS: RBC/HPF 0-3 HPF (0-3)
[2018-06-03 13:16] LABS: Troponin I Less than 0.010 ng/mL (< 0.028)
[2018-06-03] MEDS ORDERED: Morphine 4 MG/ML VIAL ONE (13:34)
[2018-06-03] MEDS ORDERED: Acetaminophen 325 MG TAB ONE (13:42)
--- NOTE | 2018-06-03 14:13 | CT ---
CT BRAIN WITHOUT CONTRAST: Date: 06/03/18 HISTORY: Headache. FINDINGS: Comparison made with exam of 05/20/18. Changes of mild chronic small vessel ischemic disease are again seen. The ventricular size is stable and the basilar cisterns are patent. No evidence of infarct, hemorrhage, midline shift, or abnormal e xtra-axial fluid collections are seen. The ventricular size is appropriate and the basilar cisterns a re patent. The bony calvarium is intact. The visualized paranasal sinuses and mastoid air cells are w ell aerated. IMPRESSION: No CT evidence of acute intracranial process. POS: OFF
[2018-06-03 16:05] LABS: Troponin I Less than 0.010 ng/mL (< 0.028)
[2018-06-03] MEDS ORDERED: Ondansetron PF 4 MG/2 ML Vial IVP PRN (16:12)
[2018-06-03] MEDS ORDERED: Acetaminophen 325 MG TAB PO PRN (16:12)
[2018-06-03] MEDS ORDERED: Ondansetron ODT 4 MG TAB SL PRN (16:12)
[2018-06-03] MEDS ORDERED: Sodium Chloride 0.9% 1,000 ML IV SCH (16:15)
[2018-06-03 16:18] VITALS: BMI 25.4
[2018-06-03] MEDS ORDERED: Metoclopramide HCl 10 MG/2 ML VIAL IVP SCH (16:45)
[2018-06-03] MEDS ORDERED: diphenhydrAMINE 50 MG/ML VIAL IVP SCH (16:45)
[2018-06-03] MEDS ORDERED: Ketorolac Tromethamine 30 MG/ML VIAL IVP SCH (17:00)
[2018-06-03] MEDS ORDERED: tiZANidine HCl 4 MG TAB PO PRN (17:22)
[2018-06-03] MEDS ORDERED: Meclizine HCl 25 MG TAB PO PRN (17:22)
--- NOTE | 2018-06-03 18:10 | HP ---
PRIMARY CARE PHYSICIAN: Dr. Lott. CHIEF COMPLAINT: Presyncope. HISTORY OF PRESENT ILLNESS: Ms. Rojo is a 62-year-old female who presented to the emergency room with evaluation of hypotension, bradycardia, had a presyncopal episode this morning. The patient reports that she was feeling unwell like she had some sort of viral illness over the last few days, nothing specific. She was tired, weak. Reports that she has had a headache on and off for the last several days. When she got up this morning, she sat up at the edge of the bed. Reports that she got very clammy, diaphoretic. She felt dizzy, felt like she was going to pass out, so she laid back down. Denies any loss of consciousness. Reports that she has been off work for the last 2 weeks after her last visit in admission to this hospital. She was discharged on 05/24/2018 for TIA symptoms. At that time, had Neurology consult and was placed on Plavix and aspirin. She reports that she had seen her sealing machine operator, Dr. Carranza and her primary care Dr. Jean, and they changed up her medication that she is no longer on hormone and Dr. Carranza took her off Plavix and aspirin and added Eliquis to her daily regimen. She reports that she has been taking that. Reports that she was feeling well and had plan to go back to work today until she had the presyncopal episode this morning. Reports that her took her blood pressure this morning and this was on the low side 80/40 with slower heart rate in the 50s. The patient does have a history of atrial fibrillation which was controlled with metoprolol and flecainide. When she got to the emergency room this morning, her blood pressure was 157/96 with a pulse of 72. She denies any visual changes, chest pain, shortness of breath, any focal sensory or motor deficits. Based on recent history, the patient will be admitted to the observation unit for further management. The patient did have a CT of the brain while in the emergency room, which showed no CT evidence of acute intracranial process. She had an echocardiogram here on last visit on 05/21, which showed an EF of 55% to 60%. Brain MRI did not show any acute process. PAST MEDICAL HISTORY: Includes hypothyroidism, atrial fibrillation, arthritis, TIA. PAST SURGICAL HISTORY: Breast augmentation, breast biopsy, partial hysterectomy. PSYCH HISTORY: None. SOCIAL HISTORY: The patient reports that she drinks alcohol every day, less than 5 drinks per day. Denies any smoking or drug use. ALLERGIES: NONE. CURRENT MEDICATIONS: 1. Flecainide 50 mg p.o. b.i.d. 2. Metoprolol 25 mg p.o. b.i.d. 3. Levothyroxine 88 mcg p.o. daily. 4. Zanaflex 4 mg p.o. q.6 hours as needed. 5. Eliquis 5 mg p.o. b.i.d. 6. Vitamin D 5000 units p.o. daily. 7. Meclizine 25 mg p.o. q.4 hours p.r.n. 8. Lipitor 40 mg p.o. daily. REVIEW OF SYSTEMS: The patient denies any fever, chills, cough, shortness of breath, chest pain, abdomen pain, nausea, vomiting, diarrhea. Does report lingering headache. Reports that it is posterior. Reports that it is intermittent comes and goes. All other systems reviewed and are negative unless mentioned in the HPI. PHYSICAL EXAMINATION: CONSTITUTIONAL: In no apparent distress. HEAD: Atraumatic and normocephalic. EYES: Eyelids are normal to inspection. Pupils are equally round and reactive to light. Extraocular muscles are intact. ENT: Mouth exam is normal. Mucous membranes are moist. NECK: Normal. No cervical adenopathy. No tenderness. Trachea is midline. RESPIRATORY/CHEST: No respiratory distress. Breath sounds are clear. CARDIOVASCULAR: Heart sounds normal. S1 and S2. ABDOMEN: Female. Abdomen is nontender. Bowel sounds are heard. BACK: Normal inspection. No tenderness. EXTREMITIES: Upper extremities; inspection normal. Radial pulse, normal bilaterally. Normal range of motion. Lower extremity, normal inspection. Normal strength. Pedal pulses equal bilaterally. No edema is noted. NEUROLOGIC: The patient is oriented to person, place, and time. Speech is normal. No focal, motor, or sensory deficits. SKIN: Warm, dry, and normal in color. IMAGING STUDIES: EKG interpretation in the ER shows a normal sinus rhythm, beats per minute 70. Conduction normal, ST segments. T-waves are normal. [place] is normal. PERTINENT LABORATORY DATA: White blood cell count 6.1, hemoglobin 12.5, hematocrit 37.2. INR 1.1, PT 14.5, APTT 34.7. Sodium is 133, potassium 3.7, chloride 105, carbon dioxide 21, gap is 11, BUN is 12, creatinine is 0.72. Estimated GFR is 82. Glucose 94, calcium 8.3. CK is 26. Troponins x3 are undetectable. C-reactive protein is 0.51. Liver enzymes are unremarkable. Urine is positive for some leukocyte esterase, positive for white blood cells and squamous cells. IMPRESSION AND PLAN: 1. Presyncope. The patient had echocardiogram and MRI of the brain, carotid Doppler studies on her last admission 2 weeks ago. We will ask Dr. Carranza, sealing machine operator to come and evaluate. The patient relate that Dr. Carranza discussed a loop recorder in his office last week. We will look forward to their recommendations. 2. History of atrial fibrillation. We will continue the flecainide and metoprolol. 3. History of transient ischemic attack. We will continue the Eliquis. 4. Hypothyroidism. We will continue the home medications. 5. The patient will be started on deep venous thrombosis and gastrointestinal prophylaxis. 6. Clinical course will be dependent on findings. Job ID: [id number]
[2018-06-03] MEDS: Apixaban 5 MG TAB PO SCH (20:46)
[2018-06-03] MEDS: Flecainide 50 MG TAB PO SCH (20:46)
[2018-06-03] MEDS: Famotidine 20 MG TAB PO SCH (20:46)
[2018-06-03] MEDS: Metoprolol Tartrate 25 MG TAB PO SCH (20:47)
[2018-06-04] MEDS ORDERED: Levothyroxine Sodium 88 MCG TAB PO SCH (06:00)
[2018-06-04 06:23] LABS: #Eosinphils 0.1 thou/uL (0.0-0.7); #Lymphocytes 2.8 thou/uL (1.20-3.40); #Monocytes 0.6 thou/uL (0.11-0.59); #Neutrophils 2.7 thou/uL (1.40-6.50); %Basophils 0.6 % (0.0-1.0); %Lymphocytes 44.4 % (21.0-51.0); %Monocytes 9.3 % (0.0-10.0); %Neutrophils 43.7 % (42.0-75.0); Hemoglobin 11.5 g/dL (12.0-16.0); Mean Corpuscular HGB CONC 34.1 g/dL (32.0-36.0); Mean Corpuscular Hemoglobin 33.8 pg (27.0-31.0); Mean Corpuscular Volume 99.1 fL (78.0-98.0); Mean Platelet Volume 9.1 fL (7.4-10.4); Platelet Count 214 thou/uL (130-400); RBC Distribution Width 11.9 % (11.5-14.5); Red Blood Cell (RBC) Count 3.41 mill/uL (4.20-5.40); White Blood Cell (WBC) Count 6.2 thou/uL (4.8-10.8)
[2018-06-04 06:46] LABS: ALT (SGPT) 8 U/L (8-55); AST (SGOT) 12 U/L (5-34); Albumin 3.3 g/dL (3.4-4.8); Alkaline Phosphatase 59 U/L (40-150); Anion Gap 10 mmol/L (10-20); BUN (Urea Nitrogen) 8 mg/dL (9.8-20.1); Bilirubin, Total 0.3 mg/dL (0.2-1.2); Calc. Creatinine Clearance 98 mL/min (70-130); Calcium 8.3 mg/dL (7.8-10.44); Carbon Dioxide 24 mmol/L (23-31); Chloride 107 mmol/L (98-107); Estimated GFR-MDRD Greater than 90; Globulin 2.5 g/dL (2.4-3.5); Glucose 93 mg/dL (80-115); Potassium 3.7 mmol/L (3.5-5.1); Protein, Total 5.8 g/dL (6.0-8.3); Sodium 137 mmol/L (136-145)
[2018-06-04 08:19] VITALS: BP 150/70; TEMP 98.3
[2018-06-04] MEDS ORDERED: Ergocalciferol 1.25 MG(50,000 UNITS) CAP PO SCH (09:00)
[2018-06-04] MEDS ORDERED: Atorvastatin Calcium 40 MG TAB PO SCH (09:00)
[2018-06-04] MEDS: Apixaban 5 MG TAB PO SCH (09:34)
[2018-06-04] MEDS: Famotidine 20 MG TAB PO SCH (09:35)
[2018-06-04] MEDS: Flecainide 50 MG TAB PO SCH (09:36)
[2018-06-04] MEDS: Metoprolol Tartrate 25 MG TAB PO SCH (09:36)
--- NOTE | 2018-06-04 12:28 | EKG ---
Test Reason : Blood Pressure : / mmHG Vent. Rate : 070 BPM Atrial Rate : 070 BPM P-R Int : 136 ms QRS Dur : 090 ms QT Int : 414 ms P-R-T Axes : 002 060 062 degrees QTc Int : 447 ms Normal sinus rhythm Normal ECG Confirmed by NOREEN ROMAN MD ([id number]), supervising film or videotape editor LAURE SHEPPARD ([id number]) on 06/04/2018 12:28:04 PM Referred By: Confirmed By:NOREEN ROMAN MD
--- NOTE | 2018-06-05 10:39 | DIS ---
DATE OF ADMISSION: 06/03/2018 DATE OF DISCHARGE: 06/04/2018 PRIMARY CARE PHYSICIAN: Dr. Lott. CONSULTANTS: Dr. Carranza, Cardiology. PROCEDURES: 1. The patient had a CT of the brain which showed no CT evidence of acute intracranial process. 2. The patient also had a chest x-ray which showed no acute cardiopulmonary process. DISCHARGE DIAGNOSES: 1. Presyncope, unknown etiology. 2. History of atrial fibrillation. 3. History of transient ischemic attack. 4. Hypothyroidism. HOSPITAL COURSE: Ms. Rojo is a very pleasant 62-year-old female, who is admitted through the emergency room on 06/03/2018 for evaluation of a presyncopal episode at home. The patient reports that she felt unwell over the last two days. Reports that she also had a headache which she reports as migraines from time to time, but this felt a little different. When she is out of the edge of the bed, she felt very clammy and diaphoretic, felt a little dizzy. She laid back down. When her took her blood pressure, it was a little hypotensive with low pulse. EMS checked it when they first arrived. It was also heart rate in the 50s, blood pressure had come up to 90/50. She was taken to the emergency room and evaluated. Vital signs when she arrived in the emergency room; blood pressure 157/96, pulse was 72, pulse does dip down in the 50s. Blood pressure lowest reading in the emergency room was 146/86. While she has been admitted, we did orthostatic blood pressure readings, which were unremarkable. Blood pressure the lowest reading here was 135/70. Her vital signs have remained stable. Dr. Carranza saw the patient both on the day of admission and today prior to discharge, recommended continuing on Eliquis and re-visiting him in the office in the next several weeks. We also, while she was admitted, gave her some Benadryl, Reglan, a little bit of Toradol, and some fluids for her headache. She reports that her headache resolved after the medication regimen and reports today her headache is resolved and she feels much better. Reports that she does have some Maxalt at home, but did not take any over the weekend because she thought her headache was atypical. The patient was feeling well enough to go home and so she was discharged. REVIEW OF SYSTEMS: The patient was examined prior to discharge. Denies any complaints. Headache is resolved. Denies any chest pain, palpitations, diaphoresis, abdominal pain, nausea, vomiting, or diarrhea. All other systems are reviewed and are negative unless mentioned in the hospital course. PHYSICAL EXAMINATION: VITAL SIGNS: Temperature 97.9, pulse 67, respirations 16, pulse ox is 97% on room air, and blood pressure 138/76. CONSTITUTIONAL: The patient is in no acute distress. She is alert and oriented. HEENT: Head is atraumatic and normocephalic. Eyes; eyelids are normal to inspection. Pupils are equal, round, and reactive to light. Extraocular muscles are intact. ENT; mucous membranes are moist. Mouth exam appears normal. NECK: No cervical adenopathy. No tenderness. Trachea is midline. RESPIRATORY: Chest; no respiratory distress. Breath sounds are clear. No wheezing. CARDIOVASCULAR: Normal heart rate and rhythm. Heart sounds are normal. ABDOMEN: Female, nontender on palpation. Bowel sounds are heard. BACK: Normal inspection. No tenderness. EXTREMITIES: Upper extremities; normal inspection. Normal strength. Radial pulses equal bilaterally. Lower extremity; inspection normal. Strength is normal. Pulses are equal bilaterally. No edema is noted. NEURO: The patient is alert and oriented to person, place, and time. Speech is normal. No focal motor or sensory deficits. SKIN: Warm, dry, and normal in color. PSYCH: The patient has a normal affect. MEDICATIONS: The patient will be continued on her home medication which include; 1. Eliquis 5 mg p.o. b.i.d. 2. Vitamin D one tab p.o. daily. 3. Flecainide 50 mg p.o. b.i.d. 4. Levothyroxine 88 mcg p.o. every a.m. 5. Meclizine 25 mg p.o. as needed. 6. Zofran 4 mg p.o. q.6 hours as needed. 7. Zanaflex 4 mg p.o. at bedtime as needed. 8. Lipitor 40 mg p.o. daily. ALLERGIES: NO KNOWN DRUG ALLERGIES. CONDITION: The patient's condition is stable. DISPOSITION: The patient will be discharged home. REFERRALS: The patient should make an appointment with Dr. Lott within the next week and go back to Dr. Carranza within the next 2 weeks. Job ID: [id number]
--- NOTE | 2018-06-06 17:12 | CON ---
DATE OF CONSULTATION: 06/03/2018 REASON FOR CONSULTATION: Bradycardia. HISTORY OF PRESENT ILLNESS: Ms. Rojo is a 62-year-old, whom I have seen and evaluated in the past. She recently presented with a TIA and was subsequently readmitted for weakness, fatigue, hypotension, bradycardia. During my visit, her blood pressure and heart rate had been stable. Her states her heart rate and blood pressure had been very fluctuant. She has had a chronic headache over the last several days. No chest pain, pressure, or other associated symptoms. During my visit on 06/03/2018, she did appear weak, but no specific symptoms. PAST MEDICAL HISTORY: Paroxysmal atrial fibrillation, TIA, hypothyroidism, breast augmentation, breast biopsy, hysterectomy. MEDICATIONS: Include, 1. Metoprolol. 2. Flecainide. 3. Levothyroxine. 4. Zanaflex. 5. Eliquis. 6. Vitamin D. 7. Meclizine. 8. Lipitor. REVIEW OF SYSTEMS: Ten-point review of systems is reviewed and as above, is otherwise negative. PHYSICAL EXAMINATION: GENERAL: Patient is a pleasant female, who is in no acute distress. The patient appears their stated age. VITAL SIGNS: Blood pressure 110/70, pulse 80, respiratory rate 20. NEUROLOGIC: The patient is alert and oriented x3 with no focal neurologic deficits. HEENT: Sclerae without icterus. Mouth has moist mucous membranes with normal pallor. NECK: No JVD. Carotid upstroke brisk. No bruits bilaterally. LUNGS: Clear to auscultation with unlabored respirations. BACK: No scoliosis or kyphosis. CARDIAC: Regular rate and rhythm with normal S1 and S2. No S3 or S4 noted. No significant rubs, murmurs, thrills, or gallops noted throughout the precordium. PMI is not displaced. There is no parasternal heave. ABDOMEN: Soft, nontender, nondistended. No peritoneal signs present. No hepatosplenomegaly. No abnormal striae. EXTREMITIES: 2+ femoral and 2+ dorsalis pedis pulses. No cyanosis, clubbing, or edema. SKIN: No gross abnormalities. IMPRESSION: 1. Hypotension. 2. Bradycardia. RECOMMENDATIONS: At this point, Ms. Rojo's blood pressure and heart rate appears stable. Both the above occurred while at home. She continues to complain of headache, which is not felt to be cardiac related. At this point, I would recommend continued observation on the telemetry monitoring. We will continue with Eliquis. I discussed risks and benefits of Eliquis with the patient as well as her . They are somewhat reluctant, but agreeable due to risk of bleeding. We discussed the CHADS-VASc versus HAS-BLED risk stating her bleeding risk is lower on anticoagulation therapy versus risk of stroke off anticoagulation. Job ID: [id number] KATY
--- NOTE | 2018-06-07 00:37 | PRG ---
DATE OF SERVICE: 06/04/2018 SUBJECTIVE: Ms. Rojo is doing well. She feels much better today. No further headaches. No significant dysrhythmias overnight. PHYSICAL EXAMINATION: GENERAL: Patient is a pleasant 62-year-old female, who is in no acute distress. The patient appears their stated age. VITAL SIGNS: Blood pressure 120/70, pulse 86, respirations 20. NEUROLOGIC: The patient is alert and oriented x3 with no focal neurologic deficits. HEENT: Sclerae without icterus. Mouth has moist mucous membranes with normal pallor. NECK: No JVD. Carotid upstroke brisk. No bruits bilaterally. LUNGS: Clear to auscultation with unlabored respirations. BACK: No scoliosis or kyphosis. CARDIAC: Regular rate and rhythm with normal S1 and S2. No S3 or S4 noted. No significant rubs, murmurs, thrills, or gallops noted throughout the precordium. PMI is not displaced. There is no parasternal heave. ABDOMEN: Soft, nontender, nondistended. No peritoneal signs present. No hepatosplenomegaly. No abnormal striae. EXTREMITIES: 2+ femoral and 2+ dorsalis pedis pulses. No cyanosis, clubbing, or edema. SKIN: No gross abnormalities. IMPRESSION: 1. Headache. 2. Bradycardia. 3. Hypotension. RECOMMENDATIONS: From a CV standpoint, her symptoms have resolved. There was no evidence noted while in the emergency room or while on telemetry monitoring. We will continue close observation. Given her recent history of TIA and previous history of atrial fibrillation, we will continue to recommend anticoagulation therapy. I did discuss placement of implantable loop recorder with the patient. She will think about her options but at this point, we will continue treatment with anticoagulation therapy. PLAN: Follow up in the next 1 to 2 weeks. Job ID: [id number]
== END 2018-06-04 11:33 | disposition home or self-care (01) ==
LOC: ERS 09:07 → ERHOLD 12:39 → 2SW 15:49
PROVIDERS: ADMIT Family Medicine; ATTEND Family Medicine
DX: R55 Syncope and collapse (principal); I48.0 Paroxysmal atrial fibrillation; E03.9 Hypothyroidism, unspecified; M19.90 Unspecified osteoarthritis, unspecified site; Z86.73 Personal history of transient ischemic attack (TIA), and cerebral infarction without residual deficits; Z90.711 Acquired absence of uterus with remaining cervical stump; Z79.01 Long term (current) use of anticoagulants; Z79.899 Other long term (current) drug therapy; Z98.890 Other specified postprocedural states
CPT/HCPCS: 36415; 70450; 71045; 80053; 81003; 81015; 82550; 84484; 85025; 85610; 85652; 85730; 86140; 87086; 93005; 96360; 96361; 96374; 96375; G0378; J1200; J1885; J2270; J2765

== ENCOUNTER 2018-10-18 09:22 | Outpatient (CLI) | payer OTHER ==
--- NOTE | 2018-10-18 16:14 | MMO ---
Bilateral MAMMO Bilat Screen [facility]. CLINICAL HISTORY: Patient is 62 years old and is seen for screening. The patient has no family history of breast cancer. The patient has no personal history of cancer. The patient has a history of Excisional Biopsy in May, - replace implants from silicone to saline. and left Excisional Biopsy in February, - benign biopsy. VIEWS: The views performed were: bilateral craniocaudal; bilateral mediolateral oblique; and bilateral Implant displaced with tomosynthesis. FILMS COMPARED: The present examination has been compared to prior imaging studies performed at [facility] on 09/27/2006, 07/20/2011, 07/31/2014, 11/10/2015 and 04/27/2017. MAMMOGRAM FINDINGS: The breasts are heterogeneously dense, which could obscure a lesion on mammography. Benign calcifications are noted bilaterally. Bilateral implants are stable. There are no suspicious masses, suspicious calcifications, or new areas of architectural distortion. IMPRESSION: THERE IS NO MAMMOGRAPHIC EVIDENCE OF MALIGNANCY. A ROUTINE FOLLOW-UP MAMMOGRAM IN 1 YEAR IS RECOMMENDED. THE RESULTS OF THIS EXAM WERE SENT TO THE PATIENT. ACR BI-RADS Category 2 - Benign finding MAMMOGRAPHY NOTE: 1. A negative mammogram report should not delay a biopsy if a dominant of clinically suspicious mass is present. 2. Approximately 10% to 15% of breast cancers are not detected by mammography. 3. Adenosis and dense breasts may obscure an underlying neoplasm.
== END 2018-10-18 09:23 | disposition home or self-care (01) ==
LOC: BICMAMMO 09:22
PROVIDERS: ATTEND Internal Medicine
DX: Z12.31 Encounter for screening mammogram for malignant neoplasm of breast (principal)
CPT/HCPCS: 77063; 77067

== ENCOUNTER 2019-12-23 09:16 | Outpatient (CLI) | payer OTHER ==
--- NOTE | 2019-12-23 17:27 | MRI ---
MR of the left hip without contrast INDICATION: Concern for left hip labral tear COMPARISON: Prior MR of the left hip dated January 07, 2018 TECHNIQUE: Multiplanar multisequence MR images were obtained of the left and without IV contrast. FINDINGS: Bone marrow signal intensity: Normal. No evidence for fracture. Musculature: There is a full-thickness tear involving the left gluteus minimus tendon. There is a par tial width full-thickness tear involving the anterior mid aspect of the left gluteus medius tendon. There is severe atrophy of the left gluteus minimus and moderate atrophy of the left gluteus medius t endon. The rectus femoris and left hamstring origins appear within normal limits. The left iliopsoas appears within normal limits. Left hip adductor musculature appears within normal limits. Bursa: There is a moderate left trochanteric bursitis. No iliopsoas bursitis is evident.. Joint: Small amount of fluid is seen distending the left hip joint. No definite parallel labral cyst is evident to suggest presence of a labral tear. Nerves: Visualized sciatic nerve appears within normal limits.. Intrapelvic contents: Small cystic abnormalities seen adjacent to the right common iliac vasculature measuring 2.7 and 1.5 cm are relatively stable to comparison MRI of the right hip with and without contrast dated 11/08/2011 and likely reflect small lymphoceles or slow flow vascular malformations. Sm all perineural cysts could also have a similar appearance. IMPRESSION: 1. Full-thickness tear of the left gluteus minimus tendon and a partial width, full-thickness tear of the left gluteus medius tendon with moderate left trochanteric bursitis. There is severe atrophy of the left gluteus minimus minimus musculature and moderate atrophy of the left gluteus medius muscu lature. 2. No overt evidence to suggest presence of left hip labral tear. 3. Small benign-appearing cystic abnormalities seen adjacent to the right common iliac vasculature ar e relatively stable from a comparison dated November 08, 2011.
== END 2019-12-23 09:17 | disposition home or self-care (01) ==
LOC: BICMRI 09:16
PROVIDERS: ATTEND Anesthesiology Pain Medicine
DX: S73.102A Unspecified sprain of left hip, initial encounter (principal); S76.012A Strain of muscle, fascia and tendon of left hip, initial encounter; M62.89 Other specified disorders of muscle

== ENCOUNTER 2020-01-13 15:48 | Outpatient (CLI) | payer OTHER ==
--- NOTE | 2020-01-13 16:55 | MRI ---
MRI OF THE LUMBAR SPINE WITHOUT CONTRAST: 01/13/20 HISTORY: Low back pain. COMPARISON: MRI from 2016. FINDINGS: The aortic contour is nonaneurysmal. No retroperitoneal or periaortic adenopathy. There is a T2 hyper intense focus along the right adnexa incompletely evaluated measuring at least 2.5 cm in size. The conus medullaris terminates near the inferior end plate of L1. Small cyst of the left kidney. Modic I end plate changes at L4-5. Levels are as follows: L1-2: Circumferential disc bulge. Small facet joint effusion. Moderate bilateral neural foraminal ember rowing. Minimal effacement of the ventral CSF space with the spinal canal measuring approximately 1 c m. L2-3: Mild disc desiccation. Minimal height loss. Mild facet arthrosis. Small disc bulge. Moderate ri ght and mild left neural foraminal narrowing. L3-4: Mild disc desiccation and height loss. Moderate circumferential disc bugle. Moderate to severe left and moderate right hypertrophic facet arthrosis. There is moderate left and mild right neural fo raminal narrowing. Increased posterior epidural fat. Spinal canal is narrowed to only 4 mm with some crowding of the ner ve roots. Moderate hypertrophic facet arthrosis. L4-5: Advanced degenerative space height loss with circumferential disc osteophyte complex. There is moderate to severe left and severe right neural foraminal narrowing with abutment of both exiting ner ve roots and both traversing nerve roots. Moderate hypertrophic facet arthrosis. Increased posterior epidural fat. Spinal canal is narrowed only 4 mm. L5-S1: There is grade I anterolisthesis approximately 6 mm. Moderate to severe hypertrophic facet ar throsis. Severe bilateral neural foraminal narrowing with abutment of both exiting and traversing ner ve roots. IMPRESSION: 1. Mildly progressive spondylosis lumbar spine with multilevel neural foraminal and new spinal c anal narrowing. 2. T2 hyperintense focus of the right adnexa for which nonemergent pelvic ultrasound recommended . POS: HOME
--- NOTE | 2020-01-13 16:57 | RAD ---
LUMBAR SPINE FOUR VIEW: 01/13/20 HISTORY: Acquired spondylolisthesis of the lumbosacral region. COMPARISON: Lumbar spine MRI same day. FINDINGS: There is grade I anterolisthesis of L5 over S1 with mild increased translation with flexion and exten jocy. There is moderate L4-5 degenerative disc space height loss. No acute fracture. IMPRESSION: Grade I L5-S1 anterolisthesis with mild translation with flexion and extension. POS: HOME
== END 2020-01-13 15:49 | disposition home or self-care (01) ==
LOC: BICMRI 15:48
PROVIDERS: ATTEND Anesthesiology Pain Medicine
DX: M43.17 Spondylolisthesis, lumbosacral region (principal); M47.816 Spondylosis without myelopathy or radiculopathy, lumbar region; M48.061 Spinal stenosis, lumbar region without neurogenic claudication; M48.07 Spinal stenosis, lumbosacral region; R93.89 Abnormal findings on diagnostic imaging of other specified body structures
CPT/HCPCS: 72110; 72148

== ENCOUNTER 2020-02-06 13:35 | Outpatient (CLI) | payer OTHER ==
--- NOTE | 2020-02-06 14:35 | ULT ---
EXAM: PELVIC ULTRASOUND INCLUDING TRANSABDOMINAL AND VASCULAR DUPLEX WITH COLOR AND SPECTRAL DOPPLER IMAGIN 02/06/20 HISTORY: Follow-up right adnexa from abnormal MRI, 01/13/20. FINDINGS: status post hysterectomy. Right ovary measures 3.1 x 2.2 x 1.5 cm. Left ovary measures 1.8 x 2.3 x 0. 9 cm. There is a 1.3 x 1.5 x 2.3 cm right ovarian cyst. There is a very small left ovarian follicle cyst. N o abscess or abnormal fluid collection. IMPRESSION: Small right ovarian cyst probably corresponding to the MRI finding from January 12. No other significa nt acute process. 2.3 cm right ovarian cyst. POS: OFF
== END 2020-02-06 13:36 | disposition home or self-care (01) ==
LOC: BICULT 13:35
PROVIDERS: ATTEND Anesthesiology Pain Medicine
DX: N83.201 Unspecified ovarian cyst, right side (principal)
CPT/HCPCS: 76856; 93976

== ENCOUNTER 2020-07-19 08:34 | Outpatient (CLI) | payer OTHER ==
--- NOTE | 2020-07-19 09:48 | RAD ---
CHEST 2 VIEWS: Date: 07/19/2020 HISTORY: Chronic cough. COMPARISON: Radiograph from 2018. FINDINGS: Small nodule peripheral aspects right mid lung extending between the posterior 8th and 9th rib measur ing 3-4 mm. No confluent air space consolidation, pneumothorax, or effusion. No acute osseous abnorma lity. IMPRESSION: 1. No acute intrathoracic abnormality. 2. 3-4 mm nodule projecting over the peripheral aspect right mid lung does not appear to have signif icantly grown from the 06/03/2018 exam, likely a benign granuloma. If clinically warranted, a follow- up CT of the chest in 6 months may be performed. POS: OFF
== END 2020-07-19 08:35 | disposition home or self-care (01) ==
LOC: BICRAD 08:34
PROVIDERS: ATTEND Internal Medicine
DX: R05 Cough (principal); R91.1 Solitary pulmonary nodule
CPT/HCPCS: 71046

== ENCOUNTER 2021-01-28 08:54 | Outpatient (CLI) | payer OTHER, MEDICARE ==
[2021-01-28 10:15] LABS: Hemoglobin 12.8 g/dL (12.0-15.5); Mean Corpuscular HGB CONC 34.2 g/dL (32.0-36.0); Mean Corpuscular Hemoglobin 32.8 pg (27.0-33.0); Mean Corpuscular Volume 95.9 fl (81.6-98.3); Mean Platelet Volume 11.3 fl (7.4-10.4); Platelet Count 234 10x3/uL (150-450); RBC Distribution Width 12.4 % (11.5-14.5); White Blood Cell (WBC) Count 5.7 10x3/uL (3.5-10.5)
[2021-01-28 10:33] LABS: Anion Gap 12 mmol/L (10-20); BUN (Urea Nitrogen) 13 mg/dL (9.8-20.1); Calc. Creatinine Clearance 0 mL/min (70-130); Calcium 9.5 mg/dL (7.8-10.44); Carbon Dioxide 24 mmol/L (23-31); Chloride 105 mmol/L (98-107); Glucose 101 mg/dL (80-115); Potassium 4.5 mmol/L (3.5-5.1); Sodium 136 mmol/L (136-145)
[2021-01-29 16:35] LABS: SARS-CoV-2 PCR by NAA Not Detected (NotDetected)
== END 2021-01-28 08:55 | disposition home or self-care (01) ==
LOC: LABBT 08:54
PROVIDERS: ATTEND Otolaryngology Plastic Surgery within the Head & Neck
DX: Z01.812 Encounter for preprocedural laboratory examination (principal); R22.0 Localized swelling, mass and lump, head; Z20.822 Contact with and (suspected) exposure to COVID-19
CPT/HCPCS: 80048; 85027; U0003; U0005

== ENCOUNTER 2021-02-02 | Day surgery (SDC) | payer OTHER, MEDICARE | END 2021-02-02 18:25 | disposition home or self-care (01) | PROC: 0CB80ZZ Excision of Right Parotid Gland, Open Approach (ICD-10-PCS; principal; 2021-02-02) ==

== ENCOUNTER 2021-04-08 12:33 | Outpatient (CLI) | payer OTHER, MEDICARE | END 2021-04-08 12:34 | disposition home or self-care (01) | LOC: BICCT 12:33 | PROVIDERS: ATTEND Internal Medicine | DX: R91.1 Solitary pulmonary nodule (principal) | CPT/HCPCS: 71250 ==

== ENCOUNTER 2021-06-06 17:02 | Emergency (ER) | payer OTHER, MEDICARE ==
[2021-06-06 17:38] LABS: #Eosinphils 0.1 thou/uL (0.0-0.7); #Lymphocytes 4.2 thou/uL (1.20-3.40); #Monocytes 0.9 thou/uL (0.11-0.59); #Neutrophils 5.8 thou/uL (1.40-6.50); %Basophils 0.3 % (0.0-1.0); %Eosinophils 1.2 % (0.0-10.0); %Lymphocytes 37.7 % (21.0-51.0); %Monocytes 8.3 % (0.0-10.0); %Neutrophils 52.4 % (42.0-75.0); Mean Corpuscular HGB CONC 34.1 g/dL (32.0-36.0); Mean Corpuscular Hemoglobin 33.2 pg (27.0-31.0); Mean Corpuscular Volume 97.4 fL (78.0-98.0); Mean Platelet Volume 8.1 fL (7.4-10.4); Platelet Count 280 thou/uL (130-400); RBC Distribution Width 11.8 % (11.5-14.5); Red Blood Cell (RBC) Count 4.53 mill/uL (4.20-5.40); White Blood Cell (WBC) Count 11.1 thou/uL (4.8-10.8)
[2021-06-06] MEDS ORDERED: Magnesium 2 GM/50 ML BAG (IN WATER) ONE (17:42)
[2021-06-06 17:52] LABS: INR-International Normal Ratio 0.9; PTT 36.7 sec (22.9-36.1); Prothrombin Time 12.6 sec (12.0-14.7)
[2021-06-06 18:01] LABS: ALT (SGPT) 19 U/L (8-55); AST (SGOT) 19 U/L (5-34); Albumin 4.5 g/dL (3.4-4.8); Alkaline Phosphatase 118 U/L (40-110); Anion Gap 14 mmol/L (10-20); BUN (Urea Nitrogen) 11 mg/dL (9.8-20.1); Bilirubin, Total 0.4 mg/dL (0.2-1.2); Calc. Creatinine Clearance 0 mL/min (70-130); Calcium 9.8 mg/dL (7.8-10.44); Carbon Dioxide 22 mmol/L (23-31); Chloride 97 mmol/L (98-107); Globulin 3.4 g/dL (2.4-3.5); Glucose 122 mg/dL (80-115); Potassium 3.6 mmol/L (3.5-5.1); Protein, Total 7.9 g/dL (5.8-8.1); Sodium 129 mmol/L (136-145)
[2021-06-06 18:47] LABS: Magnesium 1.7 mg/dL (1.6-2.6)
== END 2021-06-06 19:27 | disposition home or self-care (01) ==
LOC: ERS 17:02
DX: I48.91 Unspecified atrial fibrillation (principal); E03.9 Hypothyroidism, unspecified; Z86.73 Personal history of transient ischemic attack (TIA), and cerebral infarction without residual deficits; Z79.82 Long term (current) use of aspirin; Z79.01 Long term (current) use of anticoagulants; Z79.899 Other long term (current) drug therapy
CPT/HCPCS: 36415; 71045; 80053; 83735; 83880; 84443; 84484; 85025; 85610; 85730; 93005; J3475

== ENCOUNTER 2021-11-04 13:14 | Outpatient (CLI) | payer BC, MEDICARE ==
[2021-11-04 15:16] LABS: Hemoglobin 13.4 g/dL (12.0-15.5); Mean Corpuscular HGB CONC 34.7 g/dL (32.0-36.0); Mean Corpuscular Hemoglobin 33.4 pg (27.0-33.0); Mean Corpuscular Volume 96.3 fl (81.6-98.3); Mean Platelet Volume 11.6 fl (7.4-10.4); Platelet Count 258 10x3/uL (150-450); RBC Distribution Width 12.2 % (11.5-14.5); Red Blood Cell (RBC) Count 4.01 10x6/uL (3.90-5.03)
[2021-11-04 15:28] LABS: INR-International Normal Ratio 0.9; PTT 29.7 sec (22.0-33.0); Prothrombin Time 9.8 sec (9.5-12.1)
[2021-11-04 15:43] LABS: Anion Gap 16 mmol/L (10-20); BUN (Urea Nitrogen) 13 mg/dL (9.8-20.1); Calc. Creatinine Clearance 0 mL/min (70-130); Calcium 9.2 mg/dL (7.8-10.44); Carbon Dioxide 22 mmol/L (23-31); Chloride 102 mmol/L (98-107); Glucose 104 mg/dL (80-115); Potassium 4.4 mmol/L (3.5-5.1); Sodium 136 mmol/L (136-145)
[2021-11-05 16:31] LABS: SARS-CoV-2 PCR by NAA Not Detected (NotDetected)
== END 2021-11-04 13:15 | disposition home or self-care (01) ==
LOC: LABBT 13:14
PROVIDERS: ATTEND Internal Medicine Cardiovascular Disease
DX: Z01.812 Encounter for preprocedural laboratory examination (principal); I48.0 Paroxysmal atrial fibrillation; Z20.822 Contact with and (suspected) exposure to COVID-19
CPT/HCPCS: 80048; 85027; 85610; 85730; U0003; U0005

== ENCOUNTER 2021-11-07 06:04 | Day surgery (SDC) | payer BC, MEDICARE ==
[2021-11-03 10:15] VITALS: BMI 27.6
[2021-11-07] MEDS ORDERED: Lidocaine 2% Jelly 5 ML TUBE ONE (06:32)
[2021-11-07] MEDS ORDERED: Protamine Sulfate 50 MG/5 ML VIAL ONE (06:41)
[2021-11-07] MEDS ORDERED: Heparin 10,000 UNITS/ 10 ML VIAL ONE (06:41)
[2021-11-07] MEDS ORDERED: Heparin 25,000 units/D5W 500 ML ONE (06:41)
[2021-11-07] MEDS ORDERED: Isoproterenol 0.2 MG/1 ML AMP ONE (06:41)
[2021-11-07] MEDS ORDERED: Phenylephrine 10 MG/ML VIAL ONE (07:19)
[2021-11-07] MEDS ORDERED: Midazolam HCl 2 mg/2 ml Vial ONE (07:26)
[2021-11-07] MEDS ORDERED: Ondansetron PF 4 MG/2 ML Vial ONE (07:27)
[2021-11-07] MEDS ORDERED: Rocuronium Bromide 10 MG/ML (10ML VIAL) ONE (07:27)
[2021-11-07] MEDS ORDERED: PHENYLEPHRINE-NS 100 MCG/ML 10 ML SYRINGE ONE (07:27)
[2021-11-07] MEDS ORDERED: PROPOFOL 200 MG/20 ML VIAL ONE (07:27)
[2021-11-07] MEDS ORDERED: Dexamethasone 20 MG/5 ML VIAL ONE (07:27)
[2021-11-07] MEDS ORDERED: Fentanyl 100 MCG/2 ML VIAL ONE (07:28)
== END 2021-11-07 16:44 | disposition home or self-care (01) ==
LOC: SDC 06:04
PROVIDERS: ATTEND Internal Medicine Cardiovascular Disease
PROC: 02583ZZ Destruction of Conduction Mechanism, Percutaneous Approach (ICD-10-PCS; principal; 2021-11-07)
PROC: 4A0234Z Measurement of Cardiac Electrical Activity, Percutaneous Approach (ICD-10-PCS; principal; 2021-11-07)
PROC: 02K83ZZ Map Conduction Mechanism, Percutaneous Approach (ICD-10-PCS; principal; 2021-11-07)
PROC: B244ZZ3 Ultrasonography of Right Heart, Intravascular (ICD-10-PCS; principal; 2021-11-07)
PROC: 4A023FZ Measurement of Cardiac Rhythm, Percutaneous Approach (ICD-10-PCS; principal; 2021-11-07)
DX: I48.0 Paroxysmal atrial fibrillation (principal); I51.7 Cardiomegaly; I48.92 Unspecified atrial flutter; Z79.01 Long term (current) use of anticoagulants; Z79.890 Hormone replacement therapy; Z79.899 Other long term (current) drug therapy
CPT/HCPCS: 85347; 93005; 93613; 93623; 93656; 93657; 93662; C1730; C1732; C1759; C1760; J1100; J1644; J2250; J2370; J2405; J2704; J2720; J3010

== ENCOUNTER 2022-12-22 14:29 | Outpatient (CLI) | payer MEDICARE, BC | END 2022-12-22 14:30 | disposition home or self-care (01) | LOC: BICMAMMO 14:29 | PROVIDERS: ATTEND Internal Medicine | DX: Z12.31 Encounter for screening mammogram for malignant neoplasm of breast (principal); Z91.89 Other specified personal risk factors, not elsewhere classified | CPT/HCPCS: 77063; 77067 ==

== ENCOUNTER 2024-02-07 14:10 | Observation (INO) | payer MEDICARE ==
[~2024-02-07 14:10] MED LIST changes: -Iopamidol 370 76% 100 ML VIAL ONE; +Iopamidol-370 76% 500 ML MDV (1 ML CHARGE) ONE
[2024-02-07 14:54] LABS: #Basophils 0.04 10x3/uL (0.0-0.2); %Basophils 0.5 % (0.0-1.0); %Lymphocytes 42.5 % (21.0-51.0); %Monocytes 8.1 % (0.0-10.0); %Neutrophils 47.6 % (42.0-75.0); Hematocrit 36.2 % (36.0-47.0); Hemoglobin 12.8 g/dL (12.0-16.0); Mean Corpuscular HGB CONC 35.4 g/dL (32.0-36.0); Mean Corpuscular Hemoglobin 33.3 pg (27.0-31.0); Mean Corpuscular Volume 94.3 fL (78.0-98.0); Mean Platelet Volume 11.3 fL (7.4-10.4); Platelet Count 226 10x3/uL (130-400); RBC Distribution Width 12.5 % (11.5-14.5); Red Blood Cell (RBC) Count 3.84 mill/uL (4.20-5.40)
[2024-02-07 15:10] LABS: Bacteria/HPF None Seen HPF (None Seen); Bilirubin Negative (Negative); Blood, Urine Negative (Negative); CAUTI Indications for Culture Dysuria,urgency,freq; Clarity Clear (Clear); Glucose, Urine (Dipstick) Normal (Negative); Ketone, Urine Negative (Negative); Leukocyte Negative Leu/uL (Negative); Nitrite Negative (Negative); Protein, Urine (Dipstick) Negative (Neg-Trace); RBC/HPF 0-3 HPF (0-3); Specific Gravity, Urine 1.018 (1.002-1.036); Squamous Epithelial None Seen HPF (0-3); Urobilinogen Normal mg/dL (Less than 2); WBC/HPF 0-3 HPF (0-3)
[2024-02-07 15:12] LABS: PTT 20.3 sec (22.9-36.1)
[2024-02-07 15:14] LABS: Troponin I Less than 0.010 ng/mL (< 0.028)
[2024-02-07 15:17] LABS: Urine Culture Reflex No No
[2024-02-07 15:41] LABS: D-Dimer Test Greater than 20.00 mcg/mL (0.27-0.43)
[2024-02-07 16:11] LABS: ALT (SGPT) 15 U/L (8-55); AST (SGOT) 30 U/L (5-34); Albumin 4.3 g/dL (3.4-4.8); Alkaline Phosphatase 81 U/L (40-110); Anion Gap 19 mmol/L (10-20); BUN (Urea Nitrogen) 13 mg/dL (9.8-20.1); Bilirubin, Total 0.7 mg/dL (0.2-1.2); Calc. Creatinine Clearance 0 mL/min (70-130); Calcium 9.7 mg/dL (7.8-10.44); Carbon Dioxide 21 mmol/L (23-31); Chloride 98 mmol/L (98-107); Estimated GFR 95; Glucose 134 mg/dL (80-115); Magnesium 1.9 mg/dL (1.6-2.6); Potassium 4.8 mmol/L (3.5-5.1); Protein, Total 8.3 g/dL (5.8-8.1); Sodium 133 mmol/L (136-145)
[2024-02-07] MEDS ORDERED: Aspirin Chewable 81 MG TAB ONE (17:09)
[2024-02-07] MEDS ORDERED: Ondansetron PF 4 MG/2 ML Vial IVP PRN (17:59)
[2024-02-07] MEDS ORDERED: Calcium Carbonate 500 MG ChewTAB PO PRN (17:59)
[2024-02-07] MEDS ORDERED: Acetaminophen 650 MG Suppository PR PRN (17:59)
[2024-02-07] MEDS ORDERED: Senokot S 8.6-50 MG TAB PO PRN (17:59)
[2024-02-07] MEDS ORDERED: Ondansetron ODT 4 MG TAB PO PRN (17:59)
[2024-02-07] MEDS ORDERED: Sodium Chloride 0.9% 1,000 ML IV SCH (18:30)
[2024-02-07] MEDS ORDERED: diphenhydrAMINE 50 MG/ML VIAL ONE (18:41)
[2024-02-07] MEDS ORDERED: Prochlorperazine 10 MG/2 ML VIAL ONE (18:42)
[2024-02-07] MEDS ORDERED: hydrALAZINE 20 MG/ML VIAL ONE (19:14)
[2024-02-07] MEDS ORDERED: Enoxaparin 80 MG (0.8 mL) SYRINGE SC SCH (21:00)
[2024-02-07 21:29] LABS: Influenza A by NAA Not Detected (NotDetected); Influenza B by NAA Not Detected (NotDetected); SARS-CoV-2 NAA Rapid Test Not Detected (NotDetected)
[2024-02-07] MEDS: Prochlorperazine Edisylate 10 MG in Sodium Chloride 0.9% 50 ML IVPB SCH (22:12)
[2024-02-07] MEDS: diphenhydrAMINE 50 MG/ML VIAL IVP SCH (22:12)
[2024-02-07] MEDS: hydrALAZINE 20 MG/ML VIAL SLOW IVP SCH (22:13)
[2024-02-07 22:22] LABS: Lactic Acid 0.7 mmol/L (0.5-2.2)
[2024-02-07] MEDS: Famotidine 20 MG TAB PO SCH (22:23)
[2024-02-07] MEDS: Metoprolol Tartrate 25 MG TAB PO SCH (22:23)
[2024-02-07] MEDS: Atorvastatin Calcium 40 MG TAB PO SCH (22:23)
[2024-02-07] MEDS: Ketorolac Tromethamine 30 MG (1 mL) VIAL IVP PRN (22:23)
[2024-02-07 22:29] VITALS: BMI 27.8
[2024-02-07] MEDS: Sodium Chloride 0.9% 1,000 ML IV SCH (22:32)
[2024-02-08 04:07] LABS: #Basophils 0.03 10x3/uL (0.0-0.2); %Basophils 0.3 % (0.0-1.0); %Eosinophils 0.5 % (0.0-10.0); %Lymphocytes 30.4 % (21.0-51.0); %Monocytes 9.1 % (0.0-10.0); %Neutrophils 59.4 % (42.0-75.0); Hematocrit 35.4 % (36.0-47.0); Hemoglobin 12.5 g/dL (12.0-16.0); Mean Corpuscular HGB CONC 35.3 g/dL (32.0-36.0); Mean Corpuscular Hemoglobin 33.6 pg (27.0-31.0); Mean Corpuscular Volume 95.2 fL (78.0-98.0); Mean Platelet Volume 10.7 fL (7.4-10.4); Platelet Count 234 10x3/uL (130-400); RBC Distribution Width 12.7 % (11.5-14.5); Red Blood Cell (RBC) Count 3.72 mill/uL (4.20-5.40)
[2024-02-08 04:37] LABS: Anion Gap 15 mmol/L (10-20); BUN (Urea Nitrogen) 8 mg/dL (9.8-20.1); Calc. Creatinine Clearance 95 mL/min (70-130); Calcium 8.8 mg/dL (7.8-10.44); Carbon Dioxide 21 mmol/L (23-31); Cardiac Risk 3.1 (Less than 4.5); Chloride 104 mmol/L (98-107); Cholesterol 213 mg/dl (< 200 Desired); Estimated GFR 97; Glucose 100 mg/dL (80-115); HDL Cholesterol 69 mg/dL (>60 Neg Risk); LDL Cholesterol, Calculated 131 mg/dL; Potassium 3.5 mmol/L (3.5-5.1); Sodium 136 mmol/L (136-145); Triglycerides 66 mg/dL (Less than 150)
[2024-02-08] MEDS: Communication Order-Pharmacy FS ONE (10:16)
[2024-02-08] MEDS: Enoxaparin 40 MG (0.4 mL) SYRINGE SC SCH (10:17)
[2024-02-08] MEDS: Apixaban 5 MG TAB PO SCH (10:17)
[2024-02-08 11:47] VITALS: BP 164/91; TEMP 97.9
[2024-02-08] MEDS: Acetaminophen 325 MG TAB PO PRN (13:56)
[2024-02-08] MEDS ORDERED: Apixaban 5 MG TAB PO SCH (21:00)
== END 2024-02-08 16:00 | disposition home or self-care (01) ==
LOC: ERS 14:10 → 2SE 17:58
PROVIDERS: ADMIT Student in an Organized Health Care Education/Training Program; ATTEND Family Medicine
DX: G45.9 Transient cerebral ischemic attack, unspecified (principal); I10 Essential (primary) hypertension; I48.0 Paroxysmal atrial fibrillation; E78.5 Hyperlipidemia, unspecified; E03.9 Hypothyroidism, unspecified; Z79.890 Hormone replacement therapy; Z79.01 Long term (current) use of anticoagulants; Z79.899 Other long term (current) drug therapy
CPT/HCPCS: 0240U; 70450; 70496; 70498; 70551; 71045; 71275; 80048; 80061; 81001; 82962; 83605; 83735; 84484; 85025; 85379; 85730; 86850; 86900; 86901; 93005; J0780; J1200; J1885; Q9967; 36415; 36416; 80053; 84443; 96374; 96375; G0378; J0360

== ENCOUNTER 2024-06-30 12:25 | Outpatient (CLI) | payer MEDICARE ==
[2024-06-30 14:25] LABS: #Basophils 0.03 10x3/uL (0.0-0.2); %Basophils 0.4 % (0.0-1.0); %Eosinophils 1.9 % (0.0-10.0); %Lymphocytes 29.3 % (21.0-51.0); %Monocytes 10.5 % (0.0-10.0); %Neutrophils 57.5 % (42.0-75.0); Hematocrit 35.5 % (36.0-47.0); Hemoglobin 12.4 g/dL (12.0-16.0); Mean Corpuscular HGB CONC 34.9 g/dL (32.0-36.0); Mean Corpuscular Hemoglobin 33.9 pg (27.0-31.0); Mean Platelet Volume 11.2 fL (7.4-10.4); Platelet Count 208 10x3/uL (130-400); RBC Distribution Width 12.9 % (11.5-14.5); Red Blood Cell (RBC) Count 3.66 mill/uL (4.20-5.40)
[2024-06-30 14:51] LABS: Anion Gap 13 mmol/L (10-20); BUN (Urea Nitrogen) 13 mg/dL (9.8-20.1); Calc. Creatinine Clearance 0 mL/min (70-130); Calcium 9.1 mg/dL (7.8-10.44); Carbon Dioxide 25 mmol/L (23-31); Chloride 103 mmol/L (98-107); Estimated GFR 97; Glucose 84 mg/dL (80-115); Potassium 4.4 mmol/L (3.5-5.1); Sodium 137 mmol/L (136-145)
== END 2024-06-30 12:26 | disposition home or self-care (01) ==
LOC: LABBT 12:25
PROVIDERS: ATTEND Internal Medicine Cardiovascular Disease
DX: Z01.812 Encounter for preprocedural laboratory examination (principal); R06.00 Dyspnea, unspecified
CPT/HCPCS: 80048; 85025

== ENCOUNTER 2024-07-02 05:48 | Day surgery (SDC) | payer MEDICARE ==
[2024-06-30 12:44] VITALS: BMI 27.4
[2024-07-02] MEDS ORDERED: Diazepam 5 MG TAB ONE (06:24)
[2024-07-02] MEDS ORDERED: Sodium Chloride 0.9% 1,000 ML IV SCH (06:45)
== END 2024-07-02 10:48 | disposition home or self-care (01) ==
LOC: CCL 05:48
PROVIDERS: ATTEND Internal Medicine Cardiovascular Disease
PROC: 4A023N7 Measurement of Cardiac Sampling and Pressure, Left Heart, Percutaneous Approach (ICD-10-PCS; principal; 2024-07-02)
DX: I25.10 Atherosclerotic heart disease of native coronary artery without angina pectoris (principal); I10 Essential (primary) hypertension; I48.0 Paroxysmal atrial fibrillation; I49.1 Atrial premature depolarization; I47.10 Supraventricular tachycardia, unspecified; E03.9 Hypothyroidism, unspecified; Z86.73 Personal history of transient ischemic attack (TIA), and cerebral infarction without residual deficits; Z90.710 Acquired absence of both cervix and uterus; Z79.890 Hormone replacement therapy; Z79.01 Long term (current) use of anticoagulants; Z79.899 Other long term (current) drug therapy
CPT/HCPCS: 93458; C1769 ×2; C1894; 99152; J1644; J2250; J3010

== ENCOUNTER 2025-02-02 10:40 | Outpatient (CLI) | payer MEDICARE | END 2025-02-02 10:41 | disposition home or self-care (01) | LOC: BICMAMMO 10:40 | PROVIDERS: ATTEND Internal Medicine | DX: Z12.31 Encounter for screening mammogram for malignant neoplasm of breast (principal); N64.89 Other specified disorders of breast; Z85.828 Personal history of other malignant neoplasm of skin; Z98.82 Breast implant status | CPT/HCPCS: 77063; 77067 ==

== ENCOUNTER 2025-02-20 09:49 | Outpatient (CLI) | payer MEDICARE | END 2025-02-20 09:50 | disposition home or self-care (01) | LOC: BICCT 09:49 | PROVIDERS: ATTEND Internal Medicine | DX: R91.8 Other nonspecific abnormal finding of lung field (principal) | CPT/HCPCS: 71250 ==